=== PATIENT | female | born 1945 | race Caucasian/White ===

== ENCOUNTER 2017-05-16 00:09 | Day surgery (SDC) | payer OTHER, SELFPAY ==
[~2017-05-16 00:09] MED LIST: ENOX80I SC; HYDCHL12.5 PO; OXYACE5T PO; TRAM50 PO; WARF10 PO; WARF7.5 PO
[2017-10-24] MEDS ORDERED: LISI5 PO (07:44)
== END 2017-05-16 22:44 | disposition home or self-care (01) ==
LOC: WOUND 00:09
PROC: 2W1RX6Z Compression of Left Lower Leg using Pressure Dressing (ICD-10-PCS; principal; 2017-05-16)
DX: Z48.00 Encounter for change or removal of nonsurgical wound dressing (principal); I87.2 Venous insufficiency (chronic) (peripheral); D68.51 Activated protein C resistance; I70.209 Unspecified atherosclerosis of native arteries of extremities, unspecified extremity; I83.90 Asymptomatic varicose veins of unspecified lower extremity; M79.669 Pain in unspecified lower leg; Z79.01 Long term (current) use of anticoagulants
CPT/HCPCS: G0463

== ENCOUNTER 2017-05-18 00:40 | Day surgery (SDC) | payer OTHER, SELFPAY ==
[2017-10-24] MEDS ORDERED: LISI5 PO (07:44)
== END 2017-05-18 23:26 | disposition home or self-care (01) ==
LOC: WOUND 00:40
PROC: 2W1RX6Z Compression of Left Lower Leg using Pressure Dressing (ICD-10-PCS; principal; 2017-05-18)
DX: Z48.00 Encounter for change or removal of nonsurgical wound dressing (principal); I87.2 Venous insufficiency (chronic) (peripheral); D68.51 Activated protein C resistance; I70.209 Unspecified atherosclerosis of native arteries of extremities, unspecified extremity; I83.90 Asymptomatic varicose veins of unspecified lower extremity; M79.669 Pain in unspecified lower leg; Z79.01 Long term (current) use of anticoagulants; Z87.891 Personal history of nicotine dependence

== ENCOUNTER 2017-05-24 01:02 | Day surgery (SDC) | payer OTHER, SELFPAY ==
[2017-10-24] MEDS ORDERED: LISI5 PO (07:44)
== END 2017-05-24 22:54 | disposition home or self-care (01) ==
LOC: WOUND 01:02
PROC: 2W1RX6Z Compression of Left Lower Leg using Pressure Dressing (ICD-10-PCS; principal; 2017-05-24)
DX: I87.2 Venous insufficiency (chronic) (peripheral) (principal); L97.829 Non-pressure chronic ulcer of other part of left lower leg with unspecified severity; D68.51 Activated protein C resistance; I70.209 Unspecified atherosclerosis of native arteries of extremities, unspecified extremity; I83.90 Asymptomatic varicose veins of unspecified lower extremity; M79.669 Pain in unspecified lower leg; Z79.01 Long term (current) use of anticoagulants; Z87.891 Personal history of nicotine dependence
CPT/HCPCS: G0463

== ENCOUNTER 2017-05-31 08:00 | Day surgery (SDC) | payer OTHER, SELFPAY ==
[2017-10-24] MEDS ORDERED: LISI5 PO (07:44)
== END 2017-05-31 22:37 | disposition home or self-care (01) ==
LOC: WOUND 08:00
PROC: 0HBLXZZ Excision of Left Lower Leg Skin, External Approach (ICD-10-PCS; principal; 2017-05-31)
DX: I87.2 Venous insufficiency (chronic) (peripheral) (principal); L97.329 Non-pressure chronic ulcer of left ankle with unspecified severity; D68.51 Activated protein C resistance; I70.209 Unspecified atherosclerosis of native arteries of extremities, unspecified extremity; I83.90 Asymptomatic varicose veins of unspecified lower extremity; M79.669 Pain in unspecified lower leg; Z79.01 Long term (current) use of anticoagulants; Z87.891 Personal history of nicotine dependence
CPT/HCPCS: G0463

== ENCOUNTER 2017-06-06 09:30 | Day surgery (SDC) | payer OTHER, SELFPAY ==
[2017-10-24] MEDS ORDERED: LISI5 PO (07:44)
== END 2017-06-06 16:29 | disposition home or self-care (01) ==
LOC: WOUND 09:30
PROC: 2W1RX6Z Compression of Left Lower Leg using Pressure Dressing (ICD-10-PCS; principal; 2017-06-06)
DX: L97.329 Non-pressure chronic ulcer of left ankle with unspecified severity (principal); I87.2 Venous insufficiency (chronic) (peripheral); D68.51 Activated protein C resistance; I70.209 Unspecified atherosclerosis of native arteries of extremities, unspecified extremity; I83.90 Asymptomatic varicose veins of unspecified lower extremity; M79.669 Pain in unspecified lower leg; Z79.01 Long term (current) use of anticoagulants; Z87.891 Personal history of nicotine dependence

== ENCOUNTER 2017-06-14 00:51 | Day surgery (SDC) | payer OTHER, SELFPAY ==
[2017-10-24] MEDS ORDERED: LISI5 PO (07:44)
== END 2017-06-14 11:26 | disposition home or self-care (01) ==
LOC: WOUND 00:51
PROC: 2W1RX6Z Compression of Left Lower Leg using Pressure Dressing (ICD-10-PCS; principal; 2017-06-14)
DX: Z48.00 Encounter for change or removal of nonsurgical wound dressing (principal); I70.209 Unspecified atherosclerosis of native arteries of extremities, unspecified extremity; I87.332 Chronic venous hypertension (idiopathic) with ulcer and inflammation of left lower extremity; L97.329 Non-pressure chronic ulcer of left ankle with unspecified severity; D68.51 Activated protein C resistance; I35.0 Nonrheumatic aortic (valve) stenosis; Z79.01 Long term (current) use of anticoagulants

== ENCOUNTER 2017-06-21 00:45 | Day surgery (SDC) | payer OTHER | END 2017-06-21 22:53 | disposition home or self-care (01) | LOC: WOUND 00:45 | PROC: 0HBLXZZ Excision of Left Lower Leg Skin, External Approach (ICD-10-PCS; principal; 2017-06-21) | DX: I87.2 Venous insufficiency (chronic) (peripheral) (principal); L97.822 Non-pressure chronic ulcer of other part of left lower leg with fat layer exposed; D68.51 Activated protein C resistance; I83.90 Asymptomatic varicose veins of unspecified lower extremity; M79.669 Pain in unspecified lower leg; I70.209 Unspecified atherosclerosis of native arteries of extremities, unspecified extremity; Z79.01 Long term (current) use of anticoagulants | CPT/HCPCS: G0463 ==

== ENCOUNTER 2017-06-28 01:10 | Day surgery (SDC) | payer OTHER | END 2017-06-28 09:20 | disposition home or self-care (01) | LOC: WOUND 01:10 | PROC: 2W1RX6Z Compression of Left Lower Leg using Pressure Dressing (ICD-10-PCS; principal; 2017-06-28) | PROC: 0HBLXZZ Excision of Left Lower Leg Skin, External Approach (ICD-10-PCS; principal; 2017-06-28) | DX: I87.2 Venous insufficiency (chronic) (peripheral) (principal); L97.329 Non-pressure chronic ulcer of left ankle with unspecified severity; D68.51 Activated protein C resistance; I70.209 Unspecified atherosclerosis of native arteries of extremities, unspecified extremity; I83.90 Asymptomatic varicose veins of unspecified lower extremity; M79.669 Pain in unspecified lower leg; Z79.01 Long term (current) use of anticoagulants | CPT/HCPCS: G0463 ==

== ENCOUNTER 2017-07-05 08:00 | Day surgery (SDC) | payer OTHER | END 2017-07-05 22:43 | disposition home or self-care (01) | LOC: WOUND 08:00 | PROC: 2W1RX6Z Compression of Left Lower Leg using Pressure Dressing (ICD-10-PCS; principal; 2017-07-05) | DX: I87.2 Venous insufficiency (chronic) (peripheral) (principal); L97.329 Non-pressure chronic ulcer of left ankle with unspecified severity; D68.51 Activated protein C resistance; I70.209 Unspecified atherosclerosis of native arteries of extremities, unspecified extremity; I83.90 Asymptomatic varicose veins of unspecified lower extremity; M79.669 Pain in unspecified lower leg; Z79.01 Long term (current) use of anticoagulants; Z87.891 Personal history of nicotine dependence ==

== ENCOUNTER 2017-07-12 00:05 | Day surgery (SDC) | payer OTHER | END 2017-07-12 22:39 | disposition home or self-care (01) | LOC: WOUND 00:05 | PROC: 0HBLXZZ Excision of Left Lower Leg Skin, External Approach (ICD-10-PCS; principal; 2017-07-12) | PROC: 2W1RX6Z Compression of Left Lower Leg using Pressure Dressing (ICD-10-PCS; principal; 2017-07-12) | DX: I87.2 Venous insufficiency (chronic) (peripheral) (principal); L97.329 Non-pressure chronic ulcer of left ankle with unspecified severity; D68.51 Activated protein C resistance; I70.209 Unspecified atherosclerosis of native arteries of extremities, unspecified extremity; I83.90 Asymptomatic varicose veins of unspecified lower extremity; M79.669 Pain in unspecified lower leg; Z79.01 Long term (current) use of anticoagulants; Z87.891 Personal history of nicotine dependence | CPT/HCPCS: G0463 ==

== ENCOUNTER 2017-07-19 00:11 | Day surgery (SDC) | payer OTHER | END 2017-07-19 15:41 | disposition home or self-care (01) | LOC: WOUND 00:11 | PROC: 2W1RX6Z Compression of Left Lower Leg using Pressure Dressing (ICD-10-PCS; principal; 2017-07-19) | DX: I87.2 Venous insufficiency (chronic) (peripheral) (principal); L97.822 Non-pressure chronic ulcer of other part of left lower leg with fat layer exposed; D68.51 Activated protein C resistance; I70.209 Unspecified atherosclerosis of native arteries of extremities, unspecified extremity; I83.90 Asymptomatic varicose veins of unspecified lower extremity; M79.669 Pain in unspecified lower leg; Z79.01 Long term (current) use of anticoagulants; Z87.891 Personal history of nicotine dependence | CPT/HCPCS: G0463 ==

== ENCOUNTER 2017-07-26 00:02 | Day surgery (SDC) | payer OTHER | END 2017-07-26 11:37 | disposition home or self-care (01) | LOC: WOUND 00:02 | PROC: 0HBLXZZ Excision of Left Lower Leg Skin, External Approach (ICD-10-PCS; principal; 2017-07-26) | DX: I87.2 Venous insufficiency (chronic) (peripheral) (principal); D68.51 Activated protein C resistance; I70.209 Unspecified atherosclerosis of native arteries of extremities, unspecified extremity; M79.669 Pain in unspecified lower leg; Z79.01 Long term (current) use of anticoagulants; L97.822 Non-pressure chronic ulcer of other part of left lower leg with fat layer exposed | CPT/HCPCS: 87070; 87077; 87186; 87205; G0463 ==

== ENCOUNTER 2017-08-02 00:07 | Day surgery (SDC) | payer OTHER | END 2017-08-02 08:56 | disposition home or self-care (01) | LOC: WOUND 00:07 | DX: Z48.00 Encounter for change or removal of nonsurgical wound dressing (principal); I87.2 Venous insufficiency (chronic) (peripheral); D68.51 Activated protein C resistance; I70.209 Unspecified atherosclerosis of native arteries of extremities, unspecified extremity; I83.90 Asymptomatic varicose veins of unspecified lower extremity; M79.669 Pain in unspecified lower leg; Z79.01 Long term (current) use of anticoagulants; Z87.891 Personal history of nicotine dependence | CPT/HCPCS: G0463 ==

== ENCOUNTER 2017-08-09 08:00 | Day surgery (SDC) | payer OTHER | END 2017-08-09 13:56 | disposition home or self-care (01) | LOC: WOUND 08:00 | PROC: 0HBLXZZ Excision of Left Lower Leg Skin, External Approach (ICD-10-PCS; principal; 2017-08-09) | DX: L97.822 Non-pressure chronic ulcer of other part of left lower leg with fat layer exposed (principal); D68.51 Activated protein C resistance; I87.2 Venous insufficiency (chronic) (peripheral); I83.90 Asymptomatic varicose veins of unspecified lower extremity; M79.669 Pain in unspecified lower leg | CPT/HCPCS: G0463 ==

== ENCOUNTER 2017-08-16 00:21 | Day surgery (SDC) | payer OTHER | END 2017-08-16 09:50 | disposition home or self-care (01) | LOC: WOUND 00:21 | PROC: 0HBLXZZ Excision of Left Lower Leg Skin, External Approach (ICD-10-PCS; principal; 2017-08-16) | DX: L97.822 Non-pressure chronic ulcer of other part of left lower leg with fat layer exposed (principal); D68.51 Activated protein C resistance; I87.2 Venous insufficiency (chronic) (peripheral); I83.90 Asymptomatic varicose veins of unspecified lower extremity | CPT/HCPCS: G0463 ==

== ENCOUNTER 2017-08-23 08:00 | Day surgery (SDC) | payer OTHER | END 2017-08-23 23:00 | disposition home or self-care (01) | LOC: WOUND 08:00 | DX: Z48.00 Encounter for change or removal of nonsurgical wound dressing (principal); D68.51 Activated protein C resistance; I87.2 Venous insufficiency (chronic) (peripheral); I70.209 Unspecified atherosclerosis of native arteries of extremities, unspecified extremity; I83.90 Asymptomatic varicose veins of unspecified lower extremity; M79.669 Pain in unspecified lower leg; Z79.01 Long term (current) use of anticoagulants; L97.829 Non-pressure chronic ulcer of other part of left lower leg with unspecified severity | CPT/HCPCS: G0463 ==

== ENCOUNTER 2017-08-29 07:48 | Day surgery (SDC) | payer OTHER | END 2017-08-29 22:53 | disposition home or self-care (01) | LOC: WOUND 07:48 | DX: Z48.00 Encounter for change or removal of nonsurgical wound dressing (principal); I87.2 Venous insufficiency (chronic) (peripheral); L97.822 Non-pressure chronic ulcer of other part of left lower leg with fat layer exposed; D68.51 Activated protein C resistance; I83.90 Asymptomatic varicose veins of unspecified lower extremity; M79.669 Pain in unspecified lower leg | CPT/HCPCS: G0463 ==

== ENCOUNTER 2017-09-06 08:00 | Day surgery (SDC) | payer OTHER | END 2017-09-06 09:48 | disposition home or self-care (01) | LOC: WOUND 08:00 | DX: Z48.00 Encounter for change or removal of nonsurgical wound dressing (principal); L97.822 Non-pressure chronic ulcer of other part of left lower leg with fat layer exposed; D68.51 Activated protein C resistance; I87.2 Venous insufficiency (chronic) (peripheral); I83.90 Asymptomatic varicose veins of unspecified lower extremity | CPT/HCPCS: G0463 ==

== ENCOUNTER 2017-09-14 12:15 | Day surgery (SDC) | payer OTHER | END 2017-09-14 12:58 | disposition home or self-care (01) | LOC: WOUND 12:15 | PROC: 0HBLXZZ Excision of Left Lower Leg Skin, External Approach (ICD-10-PCS; principal; 2017-09-14) | DX: L97.322 Non-pressure chronic ulcer of left ankle with fat layer exposed (principal); D68.51 Activated protein C resistance; I70.209 Unspecified atherosclerosis of native arteries of extremities, unspecified extremity; I83.90 Asymptomatic varicose veins of unspecified lower extremity; M79.669 Pain in unspecified lower leg ==

== ENCOUNTER 2017-09-21 08:00 | Day surgery (SDC) | payer OTHER | END 2017-09-21 10:01 | disposition home or self-care (01) | LOC: WOUND 08:00 | DX: Z48.00 Encounter for change or removal of nonsurgical wound dressing (principal); L97.329 Non-pressure chronic ulcer of left ankle with unspecified severity; D68.51 Activated protein C resistance; I87.2 Venous insufficiency (chronic) (peripheral); I83.90 Asymptomatic varicose veins of unspecified lower extremity; Z79.01 Long term (current) use of anticoagulants | CPT/HCPCS: G0463 ==

== ENCOUNTER 2017-09-24 12:30 | Day surgery (SDC) | payer OTHER | END 2017-09-24 16:01 | disposition home or self-care (01) | LOC: WOUND 12:30 | DX: Z48.00 Encounter for change or removal of nonsurgical wound dressing (principal); L97.922 Non-pressure chronic ulcer of unspecified part of left lower leg with fat layer exposed; I87.2 Venous insufficiency (chronic) (peripheral); I70.209 Unspecified atherosclerosis of native arteries of extremities, unspecified extremity; I83.90 Asymptomatic varicose veins of unspecified lower extremity; M79.669 Pain in unspecified lower leg; D68.51 Activated protein C resistance; Z86.718 Personal history of other venous thrombosis and embolism; Z79.01 Long term (current) use of anticoagulants | CPT/HCPCS: G0463 ==

== ENCOUNTER 2017-10-05 09:30 | Day surgery (SDC) | payer OTHER | END 2017-10-05 10:28 | disposition home or self-care (01) | LOC: WOUND 09:30 | DX: I70.248 Atherosclerosis of native arteries of left leg with ulceration of other part of lower leg (principal); L97.322 Non-pressure chronic ulcer of left ankle with fat layer exposed; I87.2 Venous insufficiency (chronic) (peripheral); D68.51 Activated protein C resistance; Z86.718 Personal history of other venous thrombosis and embolism; R60.0 Localized edema; Z79.01 Long term (current) use of anticoagulants; Z87.891 Personal history of nicotine dependence | CPT/HCPCS: G0463 ==

== ENCOUNTER 2017-10-09 08:00 | Day surgery (SDC) | payer OTHER | END 2017-10-09 10:02 | disposition home or self-care (01) | LOC: WOUND 08:00 | DX: Z48.00 Encounter for change or removal of nonsurgical wound dressing (principal); L97.922 Non-pressure chronic ulcer of unspecified part of left lower leg with fat layer exposed; I87.2 Venous insufficiency (chronic) (peripheral); I70.209 Unspecified atherosclerosis of native arteries of extremities, unspecified extremity; I83.90 Asymptomatic varicose veins of unspecified lower extremity; M79.669 Pain in unspecified lower leg; D68.51 Activated protein C resistance | CPT/HCPCS: G0463 ==

== ENCOUNTER 2017-11-02 00:13 | Day surgery (SDC) | payer OTHER, SELFPAY ==
[~2017-11-02 00:13] MED LIST changes: +LISI5 PO
== END 2017-11-02 07:52 | disposition home or self-care (01) ==
LOC: ATC 00:13
DX: L97.922 Non-pressure chronic ulcer of unspecified part of left lower leg with fat layer exposed (principal); I87.2 Venous insufficiency (chronic) (peripheral); I70.209 Unspecified atherosclerosis of native arteries of extremities, unspecified extremity; I83.90 Asymptomatic varicose veins of unspecified lower extremity; M79.669 Pain in unspecified lower leg; D68.51 Activated protein C resistance
CPT/HCPCS: 99211

== ENCOUNTER 2017-11-13 00:08 | Day surgery (SDC) | payer OTHER, SELFPAY | END 2017-11-13 15:00 | disposition home or self-care (01) | LOC: ATC 00:08 | DX: L97.909 Non-pressure chronic ulcer of unspecified part of unspecified lower leg with unspecified severity (principal) | CPT/HCPCS: 99212 ==

== ENCOUNTER 2017-11-22 00:10 | Day surgery (SDC) | payer OTHER, SELFPAY | END 2017-11-22 22:46 | disposition home or self-care (01) | LOC: ATC 00:10 | DX: L97.909 Non-pressure chronic ulcer of unspecified part of unspecified lower leg with unspecified severity (principal) | CPT/HCPCS: 99212 ==

== ENCOUNTER 2017-12-21 07:30 | Day surgery (SDC) | payer OTHER | END 2017-12-21 22:40 | disposition home or self-care (01) | LOC: WOUND 07:30 | DX: L97.321 Non-pressure chronic ulcer of left ankle limited to breakdown of skin (principal); I70.209 Unspecified atherosclerosis of native arteries of extremities, unspecified extremity; I83.90 Asymptomatic varicose veins of unspecified lower extremity; D68.51 Activated protein C resistance; Z79.02 Long term (current) use of antithrombotics/antiplatelets; I10 Essential (primary) hypertension; Z86.718 Personal history of other venous thrombosis and embolism; Z79.01 Long term (current) use of anticoagulants | CPT/HCPCS: G0463 ==

== ENCOUNTER → 2019-01-24 | Outpatient (CLI) | payer OTHER | END | disposition home or self-care (01) | LOC: LAB EV 15:12 → LAB SHORT 15:12 | DX: N39.0 Urinary tract infection, site not specified (principal) | CPT/HCPCS: 87086 ==

== ENCOUNTER 2019-03-14 05:40 | Day surgery (SDC) | payer OTHER ==
[~2019-03-14] VITALS: Ht 162.6 cm; Wt 74.0 kg
[~2019-03-14 05:40] MED LIST changes: +ACET325 PO; +Oyster Shell C500 MG PO
[2019-03-14] MEDS ORDERED: METO25ER PO (08:38)
--- NOTE | 2019-03-14 08:52 | NUR ---
PT TOLERATES CARDIOVERSION WELL. VSS. NADN. NSR ON MONITOR. PT AND FAMILY VERBALIZES UNDERSTANDING WRITTEN AND VERBAL ORDERS. PT IV DC'D. CATH INTACT. PRESSURE DSG IN PLACE. PT DRESSES SELF WITHOUT DIFF. PT DC TO HOME VIA WC BY FAMILY
== END 2019-03-14 09:00 | disposition home or self-care (01) ==
LOC: MHTC 05:40
DX: I48.0 Paroxysmal atrial fibrillation (principal); D68.59 Other primary thrombophilia; I10 Essential (primary) hypertension; I08.0 Rheumatic disorders of both mitral and aortic valves; D68.51 Activated protein C resistance; Z86.718 Personal history of other venous thrombosis and embolism; Z79.01 Long term (current) use of anticoagulants; Z96.643 Presence of artificial hip joint, bilateral; Z79.899 Other long term (current) drug therapy; Z87.81 Personal history of (healed) traumatic fracture
CPT/HCPCS: 92960; 93005; 93010; 99152; J2250; J2704; J3010; J7040

== ENCOUNTER 2021-04-11 02:53 | Day surgery (SDC) | payer OTHER ==
[~2021-04-11 02:53] MED LIST changes: +METO25ER PO
== END 2021-04-11 22:40 | disposition home or self-care (01) ==
LOC: WOUND 02:53
DX: I87.312 Chronic venous hypertension (idiopathic) with ulcer of left lower extremity (principal); L97.822 Non-pressure chronic ulcer of other part of left lower leg with fat layer exposed; I87.2 Venous insufficiency (chronic) (peripheral); I73.9 Peripheral vascular disease, unspecified
CPT/HCPCS: A9270; G0463

== ENCOUNTER 2021-04-18 03:18 | Day surgery (SDC) | payer OTHER | END 2021-04-18 23:29 | disposition home or self-care (01) | LOC: WOUND 03:18 | DX: L97.822 Non-pressure chronic ulcer of other part of left lower leg with fat layer exposed (principal); I87.312 Chronic venous hypertension (idiopathic) with ulcer of left lower extremity; I87.2 Venous insufficiency (chronic) (peripheral); I73.9 Peripheral vascular disease, unspecified | CPT/HCPCS: A9270; G0463 ==

== ENCOUNTER 2021-04-25 02:54 | Day surgery (SDC) | payer OTHER | END 2021-04-25 23:33 | disposition home or self-care (01) | LOC: WOUND 02:54 | DX: I87.312 Chronic venous hypertension (idiopathic) with ulcer of left lower extremity (principal); L97.822 Non-pressure chronic ulcer of other part of left lower leg with fat layer exposed; I87.2 Venous insufficiency (chronic) (peripheral); I73.9 Peripheral vascular disease, unspecified; Z86.718 Personal history of other venous thrombosis and embolism; Z79.01 Long term (current) use of anticoagulants; I48.91 Unspecified atrial fibrillation; D68.59 Other primary thrombophilia | CPT/HCPCS: A9270; G0463 ==

== ENCOUNTER 2021-05-02 03:01 | Day surgery (SDC) | payer OTHER | END 2021-05-02 23:26 | disposition home or self-care (01) | LOC: WOUND 03:01 | DX: I87.312 Chronic venous hypertension (idiopathic) with ulcer of left lower extremity (principal); L97.825 Non-pressure chronic ulcer of other part of left lower leg with muscle involvement without evidence of necrosis; I87.2 Venous insufficiency (chronic) (peripheral); I73.9 Peripheral vascular disease, unspecified; I10 Essential (primary) hypertension; I48.91 Unspecified atrial fibrillation; Z79.01 Long term (current) use of anticoagulants | CPT/HCPCS: A9270; G0463 ==

== ENCOUNTER 2021-05-09 01:57 | Day surgery (SDC) | payer OTHER | END 2021-05-09 23:15 | disposition home or self-care (01) | LOC: WOUND 01:57 | DX: I87.312 Chronic venous hypertension (idiopathic) with ulcer of left lower extremity (principal); L97.825 Non-pressure chronic ulcer of other part of left lower leg with muscle involvement without evidence of necrosis; I87.2 Venous insufficiency (chronic) (peripheral); I73.9 Peripheral vascular disease, unspecified; Z86.718 Personal history of other venous thrombosis and embolism; Z79.01 Long term (current) use of anticoagulants; I10 Essential (primary) hypertension; I48.91 Unspecified atrial fibrillation | CPT/HCPCS: A9270 ==

== ENCOUNTER 2021-05-16 01:31 | Day surgery (SDC) | payer OTHER | END 2021-05-16 23:29 | disposition home or self-care (01) | LOC: WOUND 01:31 | DX: L97.825 Non-pressure chronic ulcer of other part of left lower leg with muscle involvement without evidence of necrosis (principal); I87.312 Chronic venous hypertension (idiopathic) with ulcer of left lower extremity; I87.2 Venous insufficiency (chronic) (peripheral); I73.9 Peripheral vascular disease, unspecified | CPT/HCPCS: A9270 ==

== ENCOUNTER 2021-05-23 02:57 | Day surgery (SDC) | payer OTHER | END 2021-05-23 23:35 | disposition home or self-care (01) | LOC: WOUND | DX: I87.312 Chronic venous hypertension (idiopathic) with ulcer of left lower extremity (principal); L97.825 Non-pressure chronic ulcer of other part of left lower leg with muscle involvement without evidence of necrosis; I87.2 Venous insufficiency (chronic) (peripheral); I73.9 Peripheral vascular disease, unspecified; Z86.718 Personal history of other venous thrombosis and embolism; Z79.01 Long term (current) use of anticoagulants | CPT/HCPCS: A9270 ==

== ENCOUNTER 2021-05-30 05:48 | Day surgery (SDC) | payer OTHER | END 2021-05-30 23:28 | disposition home or self-care (01) | LOC: WOUND 05:48 | DX: I87.312 Chronic venous hypertension (idiopathic) with ulcer of left lower extremity (principal); L97.825 Non-pressure chronic ulcer of other part of left lower leg with muscle involvement without evidence of necrosis; I87.2 Venous insufficiency (chronic) (peripheral); I73.9 Peripheral vascular disease, unspecified; Z86.718 Personal history of other venous thrombosis and embolism; Z79.01 Long term (current) use of anticoagulants | CPT/HCPCS: A9270 ==

== ENCOUNTER 2021-06-06 02:18 | Day surgery (SDC) | payer OTHER ==
[~2021-06-06 02:18] MED LIST changes: +CEPH500 PO
== END 2021-06-06 22:43 | disposition home or self-care (01) ==
LOC: WOUND 02:18
DX: I87.312 Chronic venous hypertension (idiopathic) with ulcer of left lower extremity (principal); L97.825 Non-pressure chronic ulcer of other part of left lower leg with muscle involvement without evidence of necrosis; I87.2 Venous insufficiency (chronic) (peripheral); I73.9 Peripheral vascular disease, unspecified
CPT/HCPCS: A9270; G0463

== ENCOUNTER 2021-06-13 01:15 | Day surgery (SDC) | payer OTHER | END 2021-06-13 23:38 | disposition home or self-care (01) | LOC: WOUND 01:15 | DX: I87.312 Chronic venous hypertension (idiopathic) with ulcer of left lower extremity (principal); L97.825 Non-pressure chronic ulcer of other part of left lower leg with muscle involvement without evidence of necrosis; I87.2 Venous insufficiency (chronic) (peripheral); I73.9 Peripheral vascular disease, unspecified; I10 Essential (primary) hypertension | CPT/HCPCS: A9270 ==

== ENCOUNTER 2021-06-20 02:01 | Day surgery (SDC) | payer OTHER | END 2021-06-20 23:27 | disposition home or self-care (01) | LOC: WOUND 02:01 | DX: I87.312 Chronic venous hypertension (idiopathic) with ulcer of left lower extremity (principal); L97.825 Non-pressure chronic ulcer of other part of left lower leg with muscle involvement without evidence of necrosis; L97.822 Non-pressure chronic ulcer of other part of left lower leg with fat layer exposed; I87.2 Venous insufficiency (chronic) (peripheral); I73.9 Peripheral vascular disease, unspecified; I10 Essential (primary) hypertension; I48.91 Unspecified atrial fibrillation; Z79.01 Long term (current) use of anticoagulants | CPT/HCPCS: A9270 ==

== ENCOUNTER 2021-06-27 00:57 | Day surgery (SDC) | payer OTHER | END 2021-06-27 23:47 | disposition home or self-care (01) | LOC: WOUND 00:57 | DX: I87.312 Chronic venous hypertension (idiopathic) with ulcer of left lower extremity (principal); L97.825 Non-pressure chronic ulcer of other part of left lower leg with muscle involvement without evidence of necrosis; L97.822 Non-pressure chronic ulcer of other part of left lower leg with fat layer exposed; I87.2 Venous insufficiency (chronic) (peripheral); I73.9 Peripheral vascular disease, unspecified; Z86.718 Personal history of other venous thrombosis and embolism | CPT/HCPCS: A9270 ==

== ENCOUNTER 2021-07-04 02:49 | Day surgery (SDC) | payer OTHER ==
[2021-09-13] MEDS ORDERED: CARVEDILOL3.125 MG PO (08:51)
[2021-09-13] MEDS ORDERED: Pentoxifylline400 MG PO (08:52)
[2021-09-13] MEDS ORDERED: ALBU90OI INH (08:52)
[2021-09-13] MEDS ORDERED: EDARBI40 MG PO (08:53)
[2021-09-13] MEDS ORDERED: GABA300 PO (08:53)
[2021-09-13] MEDS ORDERED: Norco 10-325 T1 EACH PO (08:54)
== END 2021-07-04 23:02 | disposition home or self-care (01) ==
LOC: WOUND 02:49
DX: I87.312 Chronic venous hypertension (idiopathic) with ulcer of left lower extremity (principal); L97.825 Non-pressure chronic ulcer of other part of left lower leg with muscle involvement without evidence of necrosis; S81.812A Laceration without foreign body, left lower leg, initial encounter; I87.2 Venous insufficiency (chronic) (peripheral); I73.9 Peripheral vascular disease, unspecified
CPT/HCPCS: A9270

== ENCOUNTER 2021-07-11 01:45 | Day surgery (SDC) | payer OTHER | END 2021-07-11 22:49 | disposition home or self-care (01) | LOC: WOUND 01:45 | DX: I87.312 Chronic venous hypertension (idiopathic) with ulcer of left lower extremity (principal); L97.825 Non-pressure chronic ulcer of other part of left lower leg with muscle involvement without evidence of necrosis; I87.2 Venous insufficiency (chronic) (peripheral); I73.9 Peripheral vascular disease, unspecified; I10 Essential (primary) hypertension; I48.91 Unspecified atrial fibrillation | CPT/HCPCS: A9270 ==

== ENCOUNTER 2021-07-18 01:08 | Day surgery (SDC) | payer OTHER | END 2021-07-18 23:07 | disposition home or self-care (01) | LOC: WOUND 01:08 | DX: I87.312 Chronic venous hypertension (idiopathic) with ulcer of left lower extremity (principal); L97.822 Non-pressure chronic ulcer of other part of left lower leg with fat layer exposed; I10 Essential (primary) hypertension; I48.91 Unspecified atrial fibrillation; Z79.01 Long term (current) use of anticoagulants; Z86.718 Personal history of other venous thrombosis and embolism | CPT/HCPCS: A9270; G0463 ==

== ENCOUNTER 2021-07-25 01:20 | Day surgery (SDC) | payer OTHER | END 2021-07-25 22:54 | disposition home or self-care (01) | LOC: WOUND 01:20 | DX: I87.312 Chronic venous hypertension (idiopathic) with ulcer of left lower extremity (principal); L97.822 Non-pressure chronic ulcer of other part of left lower leg with fat layer exposed; I87.2 Venous insufficiency (chronic) (peripheral); I10 Essential (primary) hypertension; I48.91 Unspecified atrial fibrillation | CPT/HCPCS: A9270 ==

== ENCOUNTER 2021-08-01 00:58 | Day surgery (SDC) | payer OTHER | END 2021-08-01 23:25 | disposition home or self-care (01) | LOC: WOUND 00:58 | DX: I87.312 Chronic venous hypertension (idiopathic) with ulcer of left lower extremity (principal); L97.322 Non-pressure chronic ulcer of left ankle with fat layer exposed; I87.2 Venous insufficiency (chronic) (peripheral); Z86.718 Personal history of other venous thrombosis and embolism; Z79.01 Long term (current) use of anticoagulants; I10 Essential (primary) hypertension; I48.91 Unspecified atrial fibrillation | CPT/HCPCS: A9270; G0463 ==

== ENCOUNTER 2021-08-08 01:11 | Day surgery (SDC) | payer OTHER | END 2021-08-08 22:45 | disposition home or self-care (01) | LOC: WOUND 01:11 | DX: I87.312 Chronic venous hypertension (idiopathic) with ulcer of left lower extremity (principal); L97.825 Non-pressure chronic ulcer of other part of left lower leg with muscle involvement without evidence of necrosis; L97.822 Non-pressure chronic ulcer of other part of left lower leg with fat layer exposed; I87.2 Venous insufficiency (chronic) (peripheral); I73.9 Peripheral vascular disease, unspecified | CPT/HCPCS: A9270; Q4133 ==

== ENCOUNTER 2021-08-15 03:10 | Day surgery (SDC) | payer OTHER | END 2021-08-15 23:22 | disposition home or self-care (01) | LOC: WOUND | DX: I87.312 Chronic venous hypertension (idiopathic) with ulcer of left lower extremity (principal); L97.822 Non-pressure chronic ulcer of other part of left lower leg with fat layer exposed; I87.2 Venous insufficiency (chronic) (peripheral); I73.9 Peripheral vascular disease, unspecified; Z86.718 Personal history of other venous thrombosis and embolism; Z79.01 Long term (current) use of anticoagulants | CPT/HCPCS: A9270; Q4133 ==

== ENCOUNTER 2021-08-29 01:08 | Day surgery (SDC) | payer OTHER | END 2021-08-29 23:24 | disposition home or self-care (01) | LOC: WOUND 01:08 | DX: I87.312 Chronic venous hypertension (idiopathic) with ulcer of left lower extremity (principal); L97.822 Non-pressure chronic ulcer of other part of left lower leg with fat layer exposed; I87.2 Venous insufficiency (chronic) (peripheral); I73.9 Peripheral vascular disease, unspecified | CPT/HCPCS: A9270; Q4133 ==

== ENCOUNTER 2021-09-05 00:36 | Day surgery (SDC) | payer OTHER | END 2021-09-05 23:43 | disposition home or self-care (01) | LOC: WOUND 00:36 | DX: I87.312 Chronic venous hypertension (idiopathic) with ulcer of left lower extremity (principal); I87.2 Venous insufficiency (chronic) (peripheral); L97.322 Non-pressure chronic ulcer of left ankle with fat layer exposed; L97.822 Non-pressure chronic ulcer of other part of left lower leg with fat layer exposed; Z79.01 Long term (current) use of anticoagulants; Z86.718 Personal history of other venous thrombosis and embolism | CPT/HCPCS: A9270; Q4133 ==

== ENCOUNTER 2021-09-12 08:00 | Day surgery (SDC) | payer OTHER ==
[2021-09-13] MEDS ORDERED: CARVEDILOL3.125 MG PO (08:51)
[2021-09-13] MEDS ORDERED: Pentoxifylline400 MG PO (08:52)
[2021-09-13] MEDS ORDERED: ALBU90OI INH (08:52)
[2021-09-13] MEDS ORDERED: EDARBI40 MG PO (08:53)
[2021-09-13] MEDS ORDERED: GABA300 PO (08:53)
[2021-09-13] MEDS ORDERED: Norco 10-325 T1 EACH PO (08:54)
== END 2021-09-12 23:59 | disposition home or self-care (01) ==
LOC: WOUND 08:00
DX: I87.312 Chronic venous hypertension (idiopathic) with ulcer of left lower extremity (principal); L97.825 Non-pressure chronic ulcer of other part of left lower leg with muscle involvement without evidence of necrosis; L97.822 Non-pressure chronic ulcer of other part of left lower leg with fat layer exposed; L97.829 Non-pressure chronic ulcer of other part of left lower leg with unspecified severity; I87.2 Venous insufficiency (chronic) (peripheral); I73.9 Peripheral vascular disease, unspecified
CPT/HCPCS: A9270; G0463

== ENCOUNTER 2021-09-19 02:32 | Day surgery (SDC) | payer OTHER ==
[~2021-09-19 02:32] MED LIST changes: +ALBU90OI INH; +CARVEDILOL3.125 MG PO; +EDARBI40 MG PO; +GABA300 PO; +Norco 10-325 T1 EACH PO; +Pentoxifylline400 MG PO
== END 2021-09-19 23:14 | disposition home or self-care (01) ==
LOC: WOUND 02:32
DX: I87.312 Chronic venous hypertension (idiopathic) with ulcer of left lower extremity (principal); L97.825 Non-pressure chronic ulcer of other part of left lower leg with muscle involvement without evidence of necrosis; I70.248 Atherosclerosis of native arteries of left leg with ulceration of other part of lower leg; I87.2 Venous insufficiency (chronic) (peripheral); Z86.718 Personal history of other venous thrombosis and embolism; Z79.01 Long term (current) use of anticoagulants
CPT/HCPCS: A9270; G0463

== ENCOUNTER 2021-10-03 00:30 | Day surgery (SDC) | payer OTHER | END 2021-10-03 23:20 | disposition home or self-care (01) | LOC: WOUND 00:30 | DX: I87.312 Chronic venous hypertension (idiopathic) with ulcer of left lower extremity (principal); I70.248 Atherosclerosis of native arteries of left leg with ulceration of other part of lower leg; L97.825 Non-pressure chronic ulcer of other part of left lower leg with muscle involvement without evidence of necrosis; I87.2 Venous insufficiency (chronic) (peripheral); I73.9 Peripheral vascular disease, unspecified; Z86.718 Personal history of other venous thrombosis and embolism; Z79.01 Long term (current) use of anticoagulants | CPT/HCPCS: A9270; Q4133 ==

== ENCOUNTER 2021-10-10 06:50 | Day surgery (SDC) | payer OTHER | END 2021-10-10 23:41 | disposition home or self-care (01) | LOC: WOUND 06:50 | DX: I87.312 Chronic venous hypertension (idiopathic) with ulcer of left lower extremity (principal); L97.822 Non-pressure chronic ulcer of other part of left lower leg with fat layer exposed; I70.248 Atherosclerosis of native arteries of left leg with ulceration of other part of lower leg; I87.2 Venous insufficiency (chronic) (peripheral); Z86.718 Personal history of other venous thrombosis and embolism; Z79.01 Long term (current) use of anticoagulants; I48.91 Unspecified atrial fibrillation; I10 Essential (primary) hypertension | CPT/HCPCS: A9270; Q4133 ==

== ENCOUNTER 2021-10-17 05:08 | Day surgery (SDC) | payer OTHER | END 2021-10-17 23:28 | disposition home or self-care (01) | LOC: WOUND 05:08 | DX: I87.312 Chronic venous hypertension (idiopathic) with ulcer of left lower extremity (principal); I70.248 Atherosclerosis of native arteries of left leg with ulceration of other part of lower leg; L97.825 Non-pressure chronic ulcer of other part of left lower leg with muscle involvement without evidence of necrosis; I87.2 Venous insufficiency (chronic) (peripheral); I73.9 Peripheral vascular disease, unspecified | CPT/HCPCS: A9270; G0463 ==

== ENCOUNTER 2021-10-24 01:58 | Day surgery (SDC) | payer OTHER | END 2021-10-24 23:14 | disposition home or self-care (01) | LOC: WOUND 01:58 | DX: I87.312 Chronic venous hypertension (idiopathic) with ulcer of left lower extremity (principal); I70.248 Atherosclerosis of native arteries of left leg with ulceration of other part of lower leg; L97.822 Non-pressure chronic ulcer of other part of left lower leg with fat layer exposed; I87.2 Venous insufficiency (chronic) (peripheral); Z86.718 Personal history of other venous thrombosis and embolism; Z79.01 Long term (current) use of anticoagulants; I10 Essential (primary) hypertension; I48.91 Unspecified atrial fibrillation | CPT/HCPCS: A9270; G0463 ==

== ENCOUNTER 2021-10-31 01:09 | Day surgery (SDC) | payer OTHER | END 2021-10-31 23:46 | disposition home or self-care (01) | LOC: WOUND 01:09 | DX: I87.312 Chronic venous hypertension (idiopathic) with ulcer of left lower extremity (principal); I70.248 Atherosclerosis of native arteries of left leg with ulceration of other part of lower leg; L97.822 Non-pressure chronic ulcer of other part of left lower leg with fat layer exposed; I87.2 Venous insufficiency (chronic) (peripheral); Z79.01 Long term (current) use of anticoagulants | CPT/HCPCS: A9270; G0463 ==

== ENCOUNTER 2021-11-07 03:41 | Day surgery (SDC) | payer OTHER | END 2021-11-07 23:00 | disposition home or self-care (01) | LOC: WOUND 03:41 | DX: I87.312 Chronic venous hypertension (idiopathic) with ulcer of left lower extremity (principal); L97.822 Non-pressure chronic ulcer of other part of left lower leg with fat layer exposed; I70.248 Atherosclerosis of native arteries of left leg with ulceration of other part of lower leg; I87.2 Venous insufficiency (chronic) (peripheral); Z86.718 Personal history of other venous thrombosis and embolism; Z79.01 Long term (current) use of anticoagulants | CPT/HCPCS: A9270 ==

== ENCOUNTER 2021-11-14 00:22 | Day surgery (SDC) | payer OTHER | END 2021-11-15 00:34 | disposition home or self-care (01) | LOC: WOUND 00:22 | DX: I70.248 Atherosclerosis of native arteries of left leg with ulceration of other part of lower leg (principal); L97.822 Non-pressure chronic ulcer of other part of left lower leg with fat layer exposed; I70.25 Atherosclerosis of native arteries of other extremities with ulceration; L98.492 Non-pressure chronic ulcer of skin of other sites with fat layer exposed; I87.312 Chronic venous hypertension (idiopathic) with ulcer of left lower extremity; I87.2 Venous insufficiency (chronic) (peripheral); Z86.718 Personal history of other venous thrombosis and embolism; Z79.01 Long term (current) use of anticoagulants | CPT/HCPCS: A9270; G0463 ==

== ENCOUNTER 2021-11-21 01:16 | Day surgery (SDC) | payer OTHER | END 2021-11-21 23:16 | disposition home or self-care (01) | LOC: WOUND 01:16 | DX: I87.312 Chronic venous hypertension (idiopathic) with ulcer of left lower extremity (principal); L97.822 Non-pressure chronic ulcer of other part of left lower leg with fat layer exposed; I87.2 Venous insufficiency (chronic) (peripheral); I70.248 Atherosclerosis of native arteries of left leg with ulceration of other part of lower leg; Z79.01 Long term (current) use of anticoagulants | CPT/HCPCS: A9270 ==

== ENCOUNTER 2021-12-12 00:26 | Day surgery (SDC) | payer OTHER | END 2021-12-12 23:31 | disposition home or self-care (01) | LOC: WOUND 00:26 | DX: I87.312 Chronic venous hypertension (idiopathic) with ulcer of left lower extremity (principal); I70.248 Atherosclerosis of native arteries of left leg with ulceration of other part of lower leg; L97.322 Non-pressure chronic ulcer of left ankle with fat layer exposed; L97.822 Non-pressure chronic ulcer of other part of left lower leg with fat layer exposed; I87.2 Venous insufficiency (chronic) (peripheral); I10 Essential (primary) hypertension; I48.91 Unspecified atrial fibrillation; Z86.718 Personal history of other venous thrombosis and embolism; Z79.01 Long term (current) use of anticoagulants | CPT/HCPCS: A9270; Q4133 ==

== ENCOUNTER 2021-12-12 09:07 | Day surgery (SDC) | payer OTHER | END 2021-12-12 23:31 | disposition home or self-care (01) | LOC: HBO 09:07 | DX: I70.248 Atherosclerosis of native arteries of left leg with ulceration of other part of lower leg (principal); I87.312 Chronic venous hypertension (idiopathic) with ulcer of left lower extremity; L97.822 Non-pressure chronic ulcer of other part of left lower leg with fat layer exposed; I87.2 Venous insufficiency (chronic) (peripheral) | CPT/HCPCS: G0277 ==

== ENCOUNTER 2021-12-22 02:03 | Day surgery (SDC) | payer OTHER | END 2021-12-22 23:26 | disposition home or self-care (01) | LOC: HBO 02:03 | DX: I70.248 Atherosclerosis of native arteries of left leg with ulceration of other part of lower leg (principal); L97.822 Non-pressure chronic ulcer of other part of left lower leg with fat layer exposed; I87.2 Venous insufficiency (chronic) (peripheral); I87.312 Chronic venous hypertension (idiopathic) with ulcer of left lower extremity | CPT/HCPCS: G0277 ==

== ENCOUNTER 2021-12-23 02:56 | Day surgery (SDC) | payer OTHER | END 2021-12-24 00:34 | disposition home or self-care (01) | LOC: HBO 02:56 | DX: I70.248 Atherosclerosis of native arteries of left leg with ulceration of other part of lower leg (principal); I87.312 Chronic venous hypertension (idiopathic) with ulcer of left lower extremity; L97.822 Non-pressure chronic ulcer of other part of left lower leg with fat layer exposed; I87.2 Venous insufficiency (chronic) (peripheral) | CPT/HCPCS: G0277 ==

== ENCOUNTER 2021-12-26 00:53 | Day surgery (SDC) | payer OTHER | END 2021-12-26 22:56 | disposition home or self-care (01) | LOC: WOUND 00:53 | DX: I70.248 Atherosclerosis of native arteries of left leg with ulceration of other part of lower leg (principal); I87.312 Chronic venous hypertension (idiopathic) with ulcer of left lower extremity; L97.822 Non-pressure chronic ulcer of other part of left lower leg with fat layer exposed; L97.322 Non-pressure chronic ulcer of left ankle with fat layer exposed; I87.2 Venous insufficiency (chronic) (peripheral); Z86.718 Personal history of other venous thrombosis and embolism | CPT/HCPCS: A9270; Q4133 ==

== ENCOUNTER 2021-12-26 00:57 | Day surgery (SDC) | payer OTHER | END 2021-12-26 22:56 | disposition home or self-care (01) | LOC: HBO 00:57 | DX: I70.248 Atherosclerosis of native arteries of left leg with ulceration of other part of lower leg (principal); I87.312 Chronic venous hypertension (idiopathic) with ulcer of left lower extremity; L97.822 Non-pressure chronic ulcer of other part of left lower leg with fat layer exposed; I87.2 Venous insufficiency (chronic) (peripheral) | CPT/HCPCS: G0277 ==

== ENCOUNTER 2021-12-27 02:25 | Day surgery (SDC) | payer OTHER | END 2021-12-27 22:52 | disposition home or self-care (01) | LOC: HBO 02:25 | DX: I70.248 Atherosclerosis of native arteries of left leg with ulceration of other part of lower leg (principal); I87.312 Chronic venous hypertension (idiopathic) with ulcer of left lower extremity; L97.822 Non-pressure chronic ulcer of other part of left lower leg with fat layer exposed; I87.2 Venous insufficiency (chronic) (peripheral) | CPT/HCPCS: G0277 ==

== ENCOUNTER 2021-12-28 01:57 | Day surgery (SDC) | payer OTHER | END 2021-12-28 23:38 | disposition home or self-care (01) | LOC: HBO 01:57 | DX: I70.248 Atherosclerosis of native arteries of left leg with ulceration of other part of lower leg (principal); I87.312 Chronic venous hypertension (idiopathic) with ulcer of left lower extremity; L97.822 Non-pressure chronic ulcer of other part of left lower leg with fat layer exposed; I87.2 Venous insufficiency (chronic) (peripheral) | CPT/HCPCS: G0277 ==

== ENCOUNTER 2021-12-30 02:16 | Day surgery (SDC) | payer OTHER | END 2021-12-30 23:59 | disposition home or self-care (01) | LOC: HBO 02:16 | DX: I70.248 Atherosclerosis of native arteries of left leg with ulceration of other part of lower leg (principal); I87.312 Chronic venous hypertension (idiopathic) with ulcer of left lower extremity; L97.822 Non-pressure chronic ulcer of other part of left lower leg with fat layer exposed; I87.2 Venous insufficiency (chronic) (peripheral) | CPT/HCPCS: G0277 ==

== ENCOUNTER 2022-01-02 01:29 | Day surgery (SDC) | payer OTHER | END 2022-01-02 23:30 | disposition home or self-care (01) | LOC: WOUND 01:29 | DX: I87.312 Chronic venous hypertension (idiopathic) with ulcer of left lower extremity (principal); I87.2 Venous insufficiency (chronic) (peripheral); I70.248 Atherosclerosis of native arteries of left leg with ulceration of other part of lower leg; L97.822 Non-pressure chronic ulcer of other part of left lower leg with fat layer exposed | CPT/HCPCS: A9270; Q4133 ==

== ENCOUNTER 2022-01-02 01:51 | Day surgery (SDC) | payer OTHER | END 2022-01-02 23:30 | disposition home or self-care (01) | LOC: HBO 01:51 | DX: I70.248 Atherosclerosis of native arteries of left leg with ulceration of other part of lower leg (principal); I87.312 Chronic venous hypertension (idiopathic) with ulcer of left lower extremity; L97.822 Non-pressure chronic ulcer of other part of left lower leg with fat layer exposed; I87.2 Venous insufficiency (chronic) (peripheral) | CPT/HCPCS: G0277 ==

== ENCOUNTER 2022-01-03 02:32 | Day surgery (SDC) | payer OTHER | END 2022-01-03 22:45 | disposition home or self-care (01) | LOC: HBO 02:32 | DX: I70.248 Atherosclerosis of native arteries of left leg with ulceration of other part of lower leg (principal); I87.312 Chronic venous hypertension (idiopathic) with ulcer of left lower extremity; L97.822 Non-pressure chronic ulcer of other part of left lower leg with fat layer exposed; I87.2 Venous insufficiency (chronic) (peripheral) | CPT/HCPCS: G0277 ==

== ENCOUNTER 2022-01-04 04:15 | Day surgery (SDC) | payer OTHER | END 2022-01-04 22:54 | disposition home or self-care (01) | LOC: HBO 04:15 | DX: I70.248 Atherosclerosis of native arteries of left leg with ulceration of other part of lower leg (principal); I87.312 Chronic venous hypertension (idiopathic) with ulcer of left lower extremity; L97.822 Non-pressure chronic ulcer of other part of left lower leg with fat layer exposed; I87.2 Venous insufficiency (chronic) (peripheral) | CPT/HCPCS: G0277 ==

== ENCOUNTER 2022-01-05 04:08 | Day surgery (SDC) | payer OTHER | END 2022-01-05 22:43 | disposition home or self-care (01) | LOC: HBO 04:08 | DX: I70.248 Atherosclerosis of native arteries of left leg with ulceration of other part of lower leg (principal); I87.312 Chronic venous hypertension (idiopathic) with ulcer of left lower extremity; L97.822 Non-pressure chronic ulcer of other part of left lower leg with fat layer exposed; I87.2 Venous insufficiency (chronic) (peripheral) | CPT/HCPCS: G0277 ==

== ENCOUNTER 2022-01-06 02:37 | Day surgery (SDC) | payer OTHER | END 2022-01-06 23:36 | disposition home or self-care (01) | LOC: HBO 02:37 | DX: I70.248 Atherosclerosis of native arteries of left leg with ulceration of other part of lower leg (principal); I87.312 Chronic venous hypertension (idiopathic) with ulcer of left lower extremity; L97.822 Non-pressure chronic ulcer of other part of left lower leg with fat layer exposed; I87.2 Venous insufficiency (chronic) (peripheral) | CPT/HCPCS: G0277 ==

== ENCOUNTER 2022-01-09 02:06 | Day surgery (SDC) | payer OTHER | END 2022-01-09 23:23 | disposition home or self-care (01) | LOC: WOUND 02:06 | DX: I70.248 Atherosclerosis of native arteries of left leg with ulceration of other part of lower leg (principal); I87.312 Chronic venous hypertension (idiopathic) with ulcer of left lower extremity; L97.825 Non-pressure chronic ulcer of other part of left lower leg with muscle involvement without evidence of necrosis; L97.822 Non-pressure chronic ulcer of other part of left lower leg with fat layer exposed; L97.322 Non-pressure chronic ulcer of left ankle with fat layer exposed; I87.2 Venous insufficiency (chronic) (peripheral) | CPT/HCPCS: A9270; G0463 ==

== ENCOUNTER 2022-01-09 02:23 | Day surgery (SDC) | payer OTHER | END 2022-01-09 23:23 | disposition home or self-care (01) | LOC: HBO 02:23 | DX: I70.248 Atherosclerosis of native arteries of left leg with ulceration of other part of lower leg (principal); I87.312 Chronic venous hypertension (idiopathic) with ulcer of left lower extremity; L97.822 Non-pressure chronic ulcer of other part of left lower leg with fat layer exposed; I87.2 Venous insufficiency (chronic) (peripheral) | CPT/HCPCS: G0277 ==

== ENCOUNTER 2022-01-10 02:50 | Day surgery (SDC) | payer OTHER | END 2022-01-10 23:10 | disposition home or self-care (01) | LOC: HBO 02:50 | DX: I70.248 Atherosclerosis of native arteries of left leg with ulceration of other part of lower leg (principal); I87.313 Chronic venous hypertension (idiopathic) with ulcer of bilateral lower extremity; L97.822 Non-pressure chronic ulcer of other part of left lower leg with fat layer exposed; I87.2 Venous insufficiency (chronic) (peripheral) | CPT/HCPCS: G0277 ==

== ENCOUNTER 2022-01-11 02:29 | Day surgery (SDC) | payer OTHER | END 2022-01-11 22:57 | disposition home or self-care (01) | LOC: HBO 02:29 | DX: I70.248 Atherosclerosis of native arteries of left leg with ulceration of other part of lower leg (principal); I87.312 Chronic venous hypertension (idiopathic) with ulcer of left lower extremity; L97.822 Non-pressure chronic ulcer of other part of left lower leg with fat layer exposed; I87.2 Venous insufficiency (chronic) (peripheral) | CPT/HCPCS: G0277 ==

== ENCOUNTER 2022-01-12 01:40 | Day surgery (SDC) | payer OTHER | END 2022-01-12 23:03 | disposition home or self-care (01) | LOC: HBO 01:40 | DX: I70.248 Atherosclerosis of native arteries of left leg with ulceration of other part of lower leg (principal); I87.312 Chronic venous hypertension (idiopathic) with ulcer of left lower extremity; L97.822 Non-pressure chronic ulcer of other part of left lower leg with fat layer exposed; I87.2 Venous insufficiency (chronic) (peripheral) | CPT/HCPCS: G0277 ==

== ENCOUNTER 2022-01-13 00:53 | Day surgery (SDC) | payer OTHER | END 2022-01-13 23:27 | disposition home or self-care (01) | LOC: HBO 00:53 | DX: I87.312 Chronic venous hypertension (idiopathic) with ulcer of left lower extremity (principal); I70.248 Atherosclerosis of native arteries of left leg with ulceration of other part of lower leg; L97.822 Non-pressure chronic ulcer of other part of left lower leg with fat layer exposed; I87.2 Venous insufficiency (chronic) (peripheral) | CPT/HCPCS: G0277 ==

== ENCOUNTER 2022-01-16 02:39 | Day surgery (SDC) | payer OTHER | END 2022-01-16 23:14 | disposition home or self-care (01) | LOC: WOUND 02:39 | DX: I87.312 Chronic venous hypertension (idiopathic) with ulcer of left lower extremity (principal); I70.248 Atherosclerosis of native arteries of left leg with ulceration of other part of lower leg; L97.825 Non-pressure chronic ulcer of other part of left lower leg with muscle involvement without evidence of necrosis; L97.822 Non-pressure chronic ulcer of other part of left lower leg with fat layer exposed; L97.322 Non-pressure chronic ulcer of left ankle with fat layer exposed; I87.2 Venous insufficiency (chronic) (peripheral); D68.59 Other primary thrombophilia; I10 Essential (primary) hypertension; Z86.718 Personal history of other venous thrombosis and embolism; Z79.01 Long term (current) use of anticoagulants | CPT/HCPCS: A9270; G0463 ==

== ENCOUNTER 2022-01-16 02:41 | Day surgery (SDC) | payer OTHER | END 2022-01-16 23:14 | disposition home or self-care (01) | LOC: HBO 02:41 | DX: I70.248 Atherosclerosis of native arteries of left leg with ulceration of other part of lower leg (principal); I87.312 Chronic venous hypertension (idiopathic) with ulcer of left lower extremity; L97.822 Non-pressure chronic ulcer of other part of left lower leg with fat layer exposed; I87.2 Venous insufficiency (chronic) (peripheral) | CPT/HCPCS: G0277 ==

== ENCOUNTER 2022-01-17 01:48 | Day surgery (SDC) | payer OTHER | END 2022-01-17 23:22 | disposition home or self-care (01) | LOC: HBO 01:48 | DX: I70.248 Atherosclerosis of native arteries of left leg with ulceration of other part of lower leg (principal); I87.312 Chronic venous hypertension (idiopathic) with ulcer of left lower extremity; L97.822 Non-pressure chronic ulcer of other part of left lower leg with fat layer exposed; I87.2 Venous insufficiency (chronic) (peripheral) | CPT/HCPCS: G0277 ==

== ENCOUNTER 2022-01-18 02:14 | Day surgery (SDC) | payer OTHER | END 2022-01-18 22:51 | disposition home or self-care (01) | LOC: HBO 02:14 | DX: I70.248 Atherosclerosis of native arteries of left leg with ulceration of other part of lower leg (principal); I87.312 Chronic venous hypertension (idiopathic) with ulcer of left lower extremity; L97.822 Non-pressure chronic ulcer of other part of left lower leg with fat layer exposed; I87.2 Venous insufficiency (chronic) (peripheral) | CPT/HCPCS: G0277 ==

== ENCOUNTER 2022-01-19 03:22 | Day surgery (SDC) | payer OTHER | END 2022-01-19 23:29 | disposition home or self-care (01) | LOC: HBO 03:22 | DX: I70.248 Atherosclerosis of native arteries of left leg with ulceration of other part of lower leg (principal); I87.312 Chronic venous hypertension (idiopathic) with ulcer of left lower extremity; L97.822 Non-pressure chronic ulcer of other part of left lower leg with fat layer exposed; I87.2 Venous insufficiency (chronic) (peripheral); Z86.718 Personal history of other venous thrombosis and embolism; Z79.01 Long term (current) use of anticoagulants | CPT/HCPCS: G0277 ==

== ENCOUNTER 2022-01-20 01:48 | Day surgery (SDC) | payer OTHER | END 2022-01-20 23:21 | disposition home or self-care (01) | LOC: HBO 01:48 | DX: I70.248 Atherosclerosis of native arteries of left leg with ulceration of other part of lower leg (principal); I87.312 Chronic venous hypertension (idiopathic) with ulcer of left lower extremity; L97.822 Non-pressure chronic ulcer of other part of left lower leg with fat layer exposed; I87.2 Venous insufficiency (chronic) (peripheral); I73.9 Peripheral vascular disease, unspecified | CPT/HCPCS: G0277 ==

== ENCOUNTER 2022-01-23 00:16 | Day surgery (SDC) | payer OTHER | END 2022-01-23 22:48 | disposition home or self-care (01) | LOC: WOUND 00:16 | DX: I70.248 Atherosclerosis of native arteries of left leg with ulceration of other part of lower leg (principal); I87.312 Chronic venous hypertension (idiopathic) with ulcer of left lower extremity; L97.825 Non-pressure chronic ulcer of other part of left lower leg with muscle involvement without evidence of necrosis; L97.822 Non-pressure chronic ulcer of other part of left lower leg with fat layer exposed; I87.2 Venous insufficiency (chronic) (peripheral); I10 Essential (primary) hypertension; I48.91 Unspecified atrial fibrillation; Z86.718 Personal history of other venous thrombosis and embolism; Z79.01 Long term (current) use of anticoagulants | CPT/HCPCS: A9270; G0463 ==

== ENCOUNTER 2022-01-23 00:19 | Day surgery (SDC) | payer OTHER | END 2022-01-23 22:48 | disposition home or self-care (01) | LOC: HBO 00:19 | DX: I70.248 Atherosclerosis of native arteries of left leg with ulceration of other part of lower leg (principal); I87.312 Chronic venous hypertension (idiopathic) with ulcer of left lower extremity; L97.822 Non-pressure chronic ulcer of other part of left lower leg with fat layer exposed; I87.2 Venous insufficiency (chronic) (peripheral) | CPT/HCPCS: G0277 ==

== ENCOUNTER 2022-01-24 03:01 | Day surgery (SDC) | payer OTHER | END 2022-01-24 23:32 | disposition home or self-care (01) | LOC: HBO 03:01 | DX: I70.248 Atherosclerosis of native arteries of left leg with ulceration of other part of lower leg (principal); I87.312 Chronic venous hypertension (idiopathic) with ulcer of left lower extremity; L97.822 Non-pressure chronic ulcer of other part of left lower leg with fat layer exposed; I87.2 Venous insufficiency (chronic) (peripheral) | CPT/HCPCS: G0277 ==

== ENCOUNTER 2022-01-25 01:37 | Day surgery (SDC) | payer OTHER | END 2022-01-25 23:42 | disposition home or self-care (01) | LOC: HBO 01:37 | DX: I70.248 Atherosclerosis of native arteries of left leg with ulceration of other part of lower leg (principal); I87.312 Chronic venous hypertension (idiopathic) with ulcer of left lower extremity; L97.822 Non-pressure chronic ulcer of other part of left lower leg with fat layer exposed; I87.2 Venous insufficiency (chronic) (peripheral); I73.9 Peripheral vascular disease, unspecified | CPT/HCPCS: G0277 ==

== ENCOUNTER 2022-01-26 03:53 | Day surgery (SDC) | payer OTHER | END 2022-01-26 23:02 | disposition home or self-care (01) | LOC: HBO 03:53 | DX: I70.248 Atherosclerosis of native arteries of left leg with ulceration of other part of lower leg (principal); I87.312 Chronic venous hypertension (idiopathic) with ulcer of left lower extremity; L97.822 Non-pressure chronic ulcer of other part of left lower leg with fat layer exposed; I87.2 Venous insufficiency (chronic) (peripheral) | CPT/HCPCS: G0277 ==

== ENCOUNTER 2022-01-30 02:53 | Day surgery (SDC) | payer OTHER | END 2022-01-30 22:56 | disposition home or self-care (01) | LOC: WOUND 02:53 | DX: I70.248 Atherosclerosis of native arteries of left leg with ulceration of other part of lower leg (principal); I87.312 Chronic venous hypertension (idiopathic) with ulcer of left lower extremity; L97.825 Non-pressure chronic ulcer of other part of left lower leg with muscle involvement without evidence of necrosis; I87.2 Venous insufficiency (chronic) (peripheral); D68.59 Other primary thrombophilia; Z86.718 Personal history of other venous thrombosis and embolism; Z79.01 Long term (current) use of anticoagulants | CPT/HCPCS: A9270; G0463 ==

== ENCOUNTER 2022-01-30 02:58 | Day surgery (SDC) | payer OTHER | END 2022-01-30 23:00 | disposition home or self-care (01) | LOC: HBO 02:58 | DX: I70.248 Atherosclerosis of native arteries of left leg with ulceration of other part of lower leg (principal); I87.312 Chronic venous hypertension (idiopathic) with ulcer of left lower extremity; L97.822 Non-pressure chronic ulcer of other part of left lower leg with fat layer exposed; I87.2 Venous insufficiency (chronic) (peripheral) | CPT/HCPCS: G0277 ==

== ENCOUNTER 2022-01-31 03:58 | Day surgery (SDC) | payer OTHER | END 2022-01-31 23:19 | disposition home or self-care (01) | LOC: HBO 03:58 | DX: I70.248 Atherosclerosis of native arteries of left leg with ulceration of other part of lower leg (principal); I87.312 Chronic venous hypertension (idiopathic) with ulcer of left lower extremity; L97.822 Non-pressure chronic ulcer of other part of left lower leg with fat layer exposed; I87.2 Venous insufficiency (chronic) (peripheral) | CPT/HCPCS: G0277 ==

== ENCOUNTER 2022-02-01 02:30 | Day surgery (SDC) | payer OTHER | END 2022-02-01 23:24 | disposition home or self-care (01) | LOC: HBO 02:30 | DX: I70.248 Atherosclerosis of native arteries of left leg with ulceration of other part of lower leg (principal); I87.312 Chronic venous hypertension (idiopathic) with ulcer of left lower extremity; L97.822 Non-pressure chronic ulcer of other part of left lower leg with fat layer exposed; I87.2 Venous insufficiency (chronic) (peripheral) | CPT/HCPCS: G0277 ==

== ENCOUNTER 2022-02-02 02:47 | Day surgery (SDC) | payer OTHER | END 2022-02-02 22:49 | disposition home or self-care (01) | LOC: HBO 02:47 | DX: I70.248 Atherosclerosis of native arteries of left leg with ulceration of other part of lower leg (principal); I87.312 Chronic venous hypertension (idiopathic) with ulcer of left lower extremity; L97.822 Non-pressure chronic ulcer of other part of left lower leg with fat layer exposed; I87.2 Venous insufficiency (chronic) (peripheral); I73.9 Peripheral vascular disease, unspecified | CPT/HCPCS: G0277 ==

== ENCOUNTER 2022-02-03 00:44 | Day surgery (SDC) | payer OTHER | END 2022-02-03 23:14 | disposition home or self-care (01) | LOC: HBO 00:44 | DX: I70.248 Atherosclerosis of native arteries of left leg with ulceration of other part of lower leg (principal); I87.312 Chronic venous hypertension (idiopathic) with ulcer of left lower extremity; L97.822 Non-pressure chronic ulcer of other part of left lower leg with fat layer exposed; I87.2 Venous insufficiency (chronic) (peripheral); I73.9 Peripheral vascular disease, unspecified | CPT/HCPCS: G0277 ==

== ENCOUNTER 2022-02-06 01:35 | Day surgery (SDC) | payer OTHER | END 2022-02-06 23:36 | disposition home or self-care (01) | LOC: WOUND 01:35 | DX: I70.248 Atherosclerosis of native arteries of left leg with ulceration of other part of lower leg (principal); I87.312 Chronic venous hypertension (idiopathic) with ulcer of left lower extremity; L97.822 Non-pressure chronic ulcer of other part of left lower leg with fat layer exposed; I87.2 Venous insufficiency (chronic) (peripheral) | CPT/HCPCS: A9270; G0463 ==

== ENCOUNTER 2022-02-06 01:39 | Day surgery (SDC) | payer OTHER | END 2022-02-06 23:36 | disposition home or self-care (01) | LOC: HBO 01:39 | DX: I70.248 Atherosclerosis of native arteries of left leg with ulceration of other part of lower leg (principal); I87.312 Chronic venous hypertension (idiopathic) with ulcer of left lower extremity; L97.822 Non-pressure chronic ulcer of other part of left lower leg with fat layer exposed; I87.2 Venous insufficiency (chronic) (peripheral) | CPT/HCPCS: G0277 ==

== ENCOUNTER 2022-02-07 08:00 | Day surgery (SDC) | payer OTHER | END 2022-02-07 23:59 | disposition home or self-care (01) | LOC: HBO 08:00 | DX: I70.248 Atherosclerosis of native arteries of left leg with ulceration of other part of lower leg (principal); I87.312 Chronic venous hypertension (idiopathic) with ulcer of left lower extremity; L97.822 Non-pressure chronic ulcer of other part of left lower leg with fat layer exposed; I87.2 Venous insufficiency (chronic) (peripheral) | CPT/HCPCS: G0277 ==

== ENCOUNTER 2022-02-08 00:42 | Day surgery (SDC) | payer OTHER | END 2022-02-08 23:32 | disposition home or self-care (01) | LOC: HBO 00:42 | DX: I70.248 Atherosclerosis of native arteries of left leg with ulceration of other part of lower leg (principal); I87.312 Chronic venous hypertension (idiopathic) with ulcer of left lower extremity; L97.822 Non-pressure chronic ulcer of other part of left lower leg with fat layer exposed; I87.2 Venous insufficiency (chronic) (peripheral) | CPT/HCPCS: G0277 ==

== ENCOUNTER 2022-02-09 00:49 | Day surgery (SDC) | payer OTHER | END 2022-02-09 22:43 | disposition home or self-care (01) | LOC: HBO 00:49 | DX: I70.248 Atherosclerosis of native arteries of left leg with ulceration of other part of lower leg (principal); I87.312 Chronic venous hypertension (idiopathic) with ulcer of left lower extremity; L97.822 Non-pressure chronic ulcer of other part of left lower leg with fat layer exposed; I87.2 Venous insufficiency (chronic) (peripheral) | CPT/HCPCS: G0277 ==

== ENCOUNTER 2022-02-10 00:32 | Day surgery (SDC) | payer OTHER | END 2022-02-10 22:50 | disposition home or self-care (01) | LOC: HBO 00:32 | DX: I70.248 Atherosclerosis of native arteries of left leg with ulceration of other part of lower leg (principal); I87.312 Chronic venous hypertension (idiopathic) with ulcer of left lower extremity; L97.822 Non-pressure chronic ulcer of other part of left lower leg with fat layer exposed; I87.2 Venous insufficiency (chronic) (peripheral) | CPT/HCPCS: G0277 ==

== ENCOUNTER 2022-02-13 01:49 | Day surgery (SDC) | payer OTHER | END 2022-02-13 23:28 | disposition home or self-care (01) | LOC: WOUND 01:49 | DX: I70.248 Atherosclerosis of native arteries of left leg with ulceration of other part of lower leg (principal); I87.312 Chronic venous hypertension (idiopathic) with ulcer of left lower extremity; L97.825 Non-pressure chronic ulcer of other part of left lower leg with muscle involvement without evidence of necrosis; D68.59 Other primary thrombophilia; I10 Essential (primary) hypertension; I48.91 Unspecified atrial fibrillation; I87.2 Venous insufficiency (chronic) (peripheral); Z86.718 Personal history of other venous thrombosis and embolism; Z79.01 Long term (current) use of anticoagulants | CPT/HCPCS: A9270; G0463 ==

== ENCOUNTER 2022-02-13 01:52 | Day surgery (SDC) | payer OTHER | END 2022-02-13 23:28 | disposition home or self-care (01) | LOC: HBO 01:52 | DX: I70.248 Atherosclerosis of native arteries of left leg with ulceration of other part of lower leg (principal); I87.312 Chronic venous hypertension (idiopathic) with ulcer of left lower extremity; L97.822 Non-pressure chronic ulcer of other part of left lower leg with fat layer exposed; I87.2 Venous insufficiency (chronic) (peripheral) | CPT/HCPCS: G0277 ==

== ENCOUNTER 2022-02-14 03:24 | Day surgery (SDC) | payer OTHER | END 2022-02-14 22:44 | disposition home or self-care (01) | LOC: HBO 03:24 | DX: I70.248 Atherosclerosis of native arteries of left leg with ulceration of other part of lower leg (principal); I87.312 Chronic venous hypertension (idiopathic) with ulcer of left lower extremity; L97.822 Non-pressure chronic ulcer of other part of left lower leg with fat layer exposed; I87.2 Venous insufficiency (chronic) (peripheral) | CPT/HCPCS: G0277 ==

== ENCOUNTER 2022-02-15 01:08 | Day surgery (SDC) | payer OTHER | END 2022-02-15 23:09 | disposition home or self-care (01) | LOC: HBO 01:08 | DX: I70.248 Atherosclerosis of native arteries of left leg with ulceration of other part of lower leg (principal); I87.312 Chronic venous hypertension (idiopathic) with ulcer of left lower extremity; L97.822 Non-pressure chronic ulcer of other part of left lower leg with fat layer exposed; I87.2 Venous insufficiency (chronic) (peripheral) | CPT/HCPCS: G0277 ==

== ENCOUNTER 2022-02-20 01:15 | Day surgery (SDC) | payer OTHER | END 2022-02-20 23:34 | disposition home or self-care (01) | DX: I87.312 Chronic venous hypertension (idiopathic) with ulcer of left lower extremity (principal); L97.822 Non-pressure chronic ulcer of other part of left lower leg with fat layer exposed; I70.248 Atherosclerosis of native arteries of left leg with ulceration of other part of lower leg; I87.2 Venous insufficiency (chronic) (peripheral) ==

== ENCOUNTER 2022-02-20 01:18 | Day surgery (SDC) | payer OTHER | END 2022-02-20 23:35 | disposition home or self-care (01) | DX: I70.248 Atherosclerosis of native arteries of left leg with ulceration of other part of lower leg (principal); I87.312 Chronic venous hypertension (idiopathic) with ulcer of left lower extremity; L97.822 Non-pressure chronic ulcer of other part of left lower leg with fat layer exposed; I87.2 Venous insufficiency (chronic) (peripheral) ==

== ENCOUNTER 2022-02-21 00:22 | Day surgery (SDC) | payer OTHER | END 2022-02-21 22:59 | disposition home or self-care (01) | LOC: HBO 00:22 | DX: I70.248 Atherosclerosis of native arteries of left leg with ulceration of other part of lower leg (principal); I87.312 Chronic venous hypertension (idiopathic) with ulcer of left lower extremity; L97.822 Non-pressure chronic ulcer of other part of left lower leg with fat layer exposed; I87.2 Venous insufficiency (chronic) (peripheral) | CPT/HCPCS: G0277 ==

== ENCOUNTER 2022-02-22 02:23 | Day surgery (SDC) | payer OTHER | END 2022-02-22 23:03 | disposition home or self-care (01) | LOC: HBO 02:23 | DX: I70.42 Atherosclerosis of autologous vein bypass graft(s) of the extremities with rest pain (principal); I87.312 Chronic venous hypertension (idiopathic) with ulcer of left lower extremity; L97.822 Non-pressure chronic ulcer of other part of left lower leg with fat layer exposed; I87.2 Venous insufficiency (chronic) (peripheral) | CPT/HCPCS: G0277 ==

== ENCOUNTER 2022-02-23 03:40 | Day surgery (SDC) | payer OTHER | END 2022-02-23 23:34 | disposition home or self-care (01) | LOC: HBO 03:40 | DX: I70.248 Atherosclerosis of native arteries of left leg with ulceration of other part of lower leg (principal); I87.312 Chronic venous hypertension (idiopathic) with ulcer of left lower extremity; L97.822 Non-pressure chronic ulcer of other part of left lower leg with fat layer exposed; I87.2 Venous insufficiency (chronic) (peripheral) | CPT/HCPCS: G0277 ==

== ENCOUNTER 2022-02-24 02:06 | Day surgery (SDC) | payer OTHER | END 2022-02-24 22:56 | disposition home or self-care (01) | LOC: HBO 02:06 | DX: I70.248 Atherosclerosis of native arteries of left leg with ulceration of other part of lower leg (principal); I87.312 Chronic venous hypertension (idiopathic) with ulcer of left lower extremity; L97.822 Non-pressure chronic ulcer of other part of left lower leg with fat layer exposed; I87.2 Venous insufficiency (chronic) (peripheral) | CPT/HCPCS: G0277 ==

== ENCOUNTER 2022-02-27 01:00 | Day surgery (SDC) | payer OTHER | END 2022-02-27 22:57 | disposition home or self-care (01) | LOC: WOUND 01:00 | DX: L97.825 Non-pressure chronic ulcer of other part of left lower leg with muscle involvement without evidence of necrosis (principal); I70.248 Atherosclerosis of native arteries of left leg with ulceration of other part of lower leg; I87.312 Chronic venous hypertension (idiopathic) with ulcer of left lower extremity; I87.2 Venous insufficiency (chronic) (peripheral); Z86.718 Personal history of other venous thrombosis and embolism; Z79.01 Long term (current) use of anticoagulants | CPT/HCPCS: A9270; Q4133 ==

== ENCOUNTER 2022-02-27 01:09 | Day surgery (SDC) | payer OTHER | END 2022-02-27 22:57 | disposition home or self-care (01) | LOC: HBO 01:09 | DX: I87.312 Chronic venous hypertension (idiopathic) with ulcer of left lower extremity (principal); L97.822 Non-pressure chronic ulcer of other part of left lower leg with fat layer exposed; I70.248 Atherosclerosis of native arteries of left leg with ulceration of other part of lower leg; I87.2 Venous insufficiency (chronic) (peripheral) | CPT/HCPCS: G0277 ==

== ENCOUNTER 2022-02-28 02:15 | Day surgery (SDC) | payer OTHER | END 2022-02-28 23:05 | disposition home or self-care (01) | LOC: HBO 02:15 | DX: I70.248 Atherosclerosis of native arteries of left leg with ulceration of other part of lower leg (principal); I87.312 Chronic venous hypertension (idiopathic) with ulcer of left lower extremity; L97.822 Non-pressure chronic ulcer of other part of left lower leg with fat layer exposed; I87.2 Venous insufficiency (chronic) (peripheral) | CPT/HCPCS: G0277 ==

== ENCOUNTER 2022-03-01 06:15 | Day surgery (SDC) | payer OTHER | END 2022-03-01 23:02 | disposition home or self-care (01) | LOC: HBO 06:15 | DX: I70.248 Atherosclerosis of native arteries of left leg with ulceration of other part of lower leg (principal); I87.312 Chronic venous hypertension (idiopathic) with ulcer of left lower extremity; L97.822 Non-pressure chronic ulcer of other part of left lower leg with fat layer exposed; I87.2 Venous insufficiency (chronic) (peripheral) | CPT/HCPCS: G0277 ==

== ENCOUNTER 2022-03-02 01:37 | Day surgery (SDC) | payer OTHER | END 2022-03-02 22:38 | disposition home or self-care (01) | LOC: HBO 01:37 | DX: I70.248 Atherosclerosis of native arteries of left leg with ulceration of other part of lower leg (principal); I87.312 Chronic venous hypertension (idiopathic) with ulcer of left lower extremity; L97.822 Non-pressure chronic ulcer of other part of left lower leg with fat layer exposed; I87.2 Venous insufficiency (chronic) (peripheral) | CPT/HCPCS: G0277 ==

== ENCOUNTER 2022-03-03 00:36 | Day surgery (SDC) | payer OTHER | END 2022-03-03 23:08 | disposition home or self-care (01) | LOC: HBO 00:36 | DX: I70.248 Atherosclerosis of native arteries of left leg with ulceration of other part of lower leg (principal); I87.312 Chronic venous hypertension (idiopathic) with ulcer of left lower extremity; L97.822 Non-pressure chronic ulcer of other part of left lower leg with fat layer exposed; I87.2 Venous insufficiency (chronic) (peripheral) | CPT/HCPCS: G0277 ==

== ENCOUNTER 2022-03-06 01:26 | Day surgery (SDC) | payer OTHER | END 2022-03-06 23:05 | disposition home or self-care (01) | LOC: WOUND 01:26 | DX: I87.312 Chronic venous hypertension (idiopathic) with ulcer of left lower extremity (principal); I70.248 Atherosclerosis of native arteries of left leg with ulceration of other part of lower leg; L97.822 Non-pressure chronic ulcer of other part of left lower leg with fat layer exposed; I87.2 Venous insufficiency (chronic) (peripheral) | CPT/HCPCS: A9270; Q4133 ==

== ENCOUNTER 2022-03-06 01:28 | Day surgery (SDC) | payer OTHER | END 2022-03-06 23:05 | disposition home or self-care (01) | LOC: HBO 01:28 | DX: I70.248 Atherosclerosis of native arteries of left leg with ulceration of other part of lower leg (principal); I87.312 Chronic venous hypertension (idiopathic) with ulcer of left lower extremity; L97.822 Non-pressure chronic ulcer of other part of left lower leg with fat layer exposed; I87.2 Venous insufficiency (chronic) (peripheral) | CPT/HCPCS: G0277 ==

== ENCOUNTER 2022-03-07 02:50 | Day surgery (SDC) | payer OTHER | END 2022-03-07 23:04 | disposition home or self-care (01) | LOC: HBO 02:50 | DX: I70.248 Atherosclerosis of native arteries of left leg with ulceration of other part of lower leg (principal); I87.312 Chronic venous hypertension (idiopathic) with ulcer of left lower extremity; L97.822 Non-pressure chronic ulcer of other part of left lower leg with fat layer exposed; I87.2 Venous insufficiency (chronic) (peripheral) | CPT/HCPCS: G0277 ==

== ENCOUNTER 2022-03-08 01:41 | Day surgery (SDC) | payer OTHER | END 2022-03-08 22:55 | disposition home or self-care (01) | LOC: HBO 01:41 | DX: I70.248 Atherosclerosis of native arteries of left leg with ulceration of other part of lower leg (principal); I87.312 Chronic venous hypertension (idiopathic) with ulcer of left lower extremity; L97.822 Non-pressure chronic ulcer of other part of left lower leg with fat layer exposed; I87.2 Venous insufficiency (chronic) (peripheral) | CPT/HCPCS: G0277 ==

== ENCOUNTER 2022-03-10 01:11 | Day surgery (SDC) | payer OTHER | END 2022-03-10 23:13 | disposition home or self-care (01) | LOC: HBO 01:11 | DX: I70.248 Atherosclerosis of native arteries of left leg with ulceration of other part of lower leg (principal); I87.312 Chronic venous hypertension (idiopathic) with ulcer of left lower extremity; L97.822 Non-pressure chronic ulcer of other part of left lower leg with fat layer exposed; E11.51 Type 2 diabetes mellitus with diabetic peripheral angiopathy without gangrene; I87.2 Venous insufficiency (chronic) (peripheral) | CPT/HCPCS: G0277 ==

== ENCOUNTER 2022-03-13 00:55 | Day surgery (SDC) | payer OTHER | END 2022-03-13 22:53 | disposition home or self-care (01) | LOC: WOUND 00:55 | DX: I87.312 Chronic venous hypertension (idiopathic) with ulcer of left lower extremity (principal); L97.822 Non-pressure chronic ulcer of other part of left lower leg with fat layer exposed; Z86.718 Personal history of other venous thrombosis and embolism; Z79.01 Long term (current) use of anticoagulants; I70.248 Atherosclerosis of native arteries of left leg with ulceration of other part of lower leg; I87.2 Venous insufficiency (chronic) (peripheral) | CPT/HCPCS: A9270; Q4133 ==

== ENCOUNTER 2022-03-13 01:14 | Day surgery (SDC) | payer OTHER | END 2022-03-13 22:53 | disposition home or self-care (01) | LOC: HBO 01:14 | DX: I70.248 Atherosclerosis of native arteries of left leg with ulceration of other part of lower leg (principal); I87.312 Chronic venous hypertension (idiopathic) with ulcer of left lower extremity; L97.822 Non-pressure chronic ulcer of other part of left lower leg with fat layer exposed; I87.2 Venous insufficiency (chronic) (peripheral) | CPT/HCPCS: G0277 ==

== ENCOUNTER 2022-03-14 02:07 | Day surgery (SDC) | payer OTHER | END 2022-03-14 22:45 | disposition home or self-care (01) | LOC: HBO 02:07 | DX: I70.248 Atherosclerosis of native arteries of left leg with ulceration of other part of lower leg (principal); I87.312 Chronic venous hypertension (idiopathic) with ulcer of left lower extremity; L97.822 Non-pressure chronic ulcer of other part of left lower leg with fat layer exposed; I87.2 Venous insufficiency (chronic) (peripheral) | CPT/HCPCS: G0277 ==

== ENCOUNTER 2022-03-15 00:51 | Day surgery (SDC) | payer OTHER | END 2022-03-15 23:58 | disposition home or self-care (01) | LOC: HBO 00:51 | DX: I70.248 Atherosclerosis of native arteries of left leg with ulceration of other part of lower leg (principal); I87.312 Chronic venous hypertension (idiopathic) with ulcer of left lower extremity; L97.822 Non-pressure chronic ulcer of other part of left lower leg with fat layer exposed; I87.2 Venous insufficiency (chronic) (peripheral) | CPT/HCPCS: G0277 ==

== ENCOUNTER 2022-03-16 01:14 | Day surgery (SDC) | payer OTHER | END 2022-03-16 23:09 | disposition home or self-care (01) | LOC: HBO 01:14 | DX: I70.248 Atherosclerosis of native arteries of left leg with ulceration of other part of lower leg (principal); I87.312 Chronic venous hypertension (idiopathic) with ulcer of left lower extremity; L97.822 Non-pressure chronic ulcer of other part of left lower leg with fat layer exposed; I87.2 Venous insufficiency (chronic) (peripheral) | CPT/HCPCS: G0277 ==

== ENCOUNTER 2022-03-17 01:38 | Day surgery (SDC) | payer OTHER | END 2022-03-18 23:33 | disposition home or self-care (01) | LOC: HBO 01:38 | DX: I70.248 Atherosclerosis of native arteries of left leg with ulceration of other part of lower leg (principal); I87.312 Chronic venous hypertension (idiopathic) with ulcer of left lower extremity; L97.822 Non-pressure chronic ulcer of other part of left lower leg with fat layer exposed; I87.2 Venous insufficiency (chronic) (peripheral) | CPT/HCPCS: G0277 ==

== ENCOUNTER 2022-03-28 01:23 | Day surgery (SDC) | payer OTHER | END 2022-03-28 22:41 | disposition home or self-care (01) | LOC: HBO 01:23 | DX: I70.248 Atherosclerosis of native arteries of left leg with ulceration of other part of lower leg (principal); I87.312 Chronic venous hypertension (idiopathic) with ulcer of left lower extremity; L97.822 Non-pressure chronic ulcer of other part of left lower leg with fat layer exposed; I87.2 Venous insufficiency (chronic) (peripheral) | CPT/HCPCS: G0277 ==

== ENCOUNTER 2022-03-29 00:34 | Day surgery (SDC) | payer OTHER | END 2022-03-29 23:10 | disposition home or self-care (01) | LOC: WOUND 00:34 | DX: I87.312 Chronic venous hypertension (idiopathic) with ulcer of left lower extremity (principal); I70.248 Atherosclerosis of native arteries of left leg with ulceration of other part of lower leg; L97.822 Non-pressure chronic ulcer of other part of left lower leg with fat layer exposed; I87.2 Venous insufficiency (chronic) (peripheral) | CPT/HCPCS: A9270; Q4133 ==

== ENCOUNTER 2022-03-29 00:39 | Day surgery (SDC) | payer OTHER | END 2022-03-29 23:10 | disposition home or self-care (01) | LOC: HBO 00:39 | DX: I70.248 Atherosclerosis of native arteries of left leg with ulceration of other part of lower leg (principal); I87.312 Chronic venous hypertension (idiopathic) with ulcer of left lower extremity; L97.822 Non-pressure chronic ulcer of other part of left lower leg with fat layer exposed; I87.2 Venous insufficiency (chronic) (peripheral) | CPT/HCPCS: G0277 ==

== ENCOUNTER 2022-03-30 04:05 | Day surgery (SDC) | payer OTHER | END 2022-03-30 22:47 | disposition home or self-care (01) | LOC: HBO 04:05 | DX: I70.248 Atherosclerosis of native arteries of left leg with ulceration of other part of lower leg (principal); I87.312 Chronic venous hypertension (idiopathic) with ulcer of left lower extremity; L97.822 Non-pressure chronic ulcer of other part of left lower leg with fat layer exposed; I87.2 Venous insufficiency (chronic) (peripheral) | CPT/HCPCS: G0277 ==

== ENCOUNTER 2022-04-05 04:05 | Day surgery (SDC) | payer OTHER | END 2022-04-05 23:06 | disposition home or self-care (01) | LOC: HBO 04:05 | DX: I87.312 Chronic venous hypertension (idiopathic) with ulcer of left lower extremity (principal); I70.248 Atherosclerosis of native arteries of left leg with ulceration of other part of lower leg; L97.822 Non-pressure chronic ulcer of other part of left lower leg with fat layer exposed; I87.2 Venous insufficiency (chronic) (peripheral) | CPT/HCPCS: G0277 ==

== ENCOUNTER 2022-04-06 01:02 | Day surgery (SDC) | payer OTHER | END 2022-04-06 22:43 | disposition home or self-care (01) | LOC: HBO 01:02 | DX: I87.312 Chronic venous hypertension (idiopathic) with ulcer of left lower extremity (principal); I70.248 Atherosclerosis of native arteries of left leg with ulceration of other part of lower leg; L97.822 Non-pressure chronic ulcer of other part of left lower leg with fat layer exposed; I87.2 Venous insufficiency (chronic) (peripheral); I77.1 Stricture of artery | CPT/HCPCS: G0277 ==

== ENCOUNTER 2022-04-07 03:06 | Day surgery (SDC) | payer OTHER | END 2022-04-07 23:07 | disposition home or self-care (01) | LOC: HBO 03:06 | DX: I87.2 Venous insufficiency (chronic) (peripheral) (principal); L97.822 Non-pressure chronic ulcer of other part of left lower leg with fat layer exposed; I70.248 Atherosclerosis of native arteries of left leg with ulceration of other part of lower leg; I87.312 Chronic venous hypertension (idiopathic) with ulcer of left lower extremity | CPT/HCPCS: G0277 ==

== ENCOUNTER 2022-04-10 02:58 | Day surgery (SDC) | payer OTHER | END 2022-04-10 23:08 | disposition home or self-care (01) | LOC: WOUND 02:58 | DX: I87.312 Chronic venous hypertension (idiopathic) with ulcer of left lower extremity (principal); L97.822 Non-pressure chronic ulcer of other part of left lower leg with fat layer exposed; I87.2 Venous insufficiency (chronic) (peripheral); I70.248 Atherosclerosis of native arteries of left leg with ulceration of other part of lower leg | CPT/HCPCS: A9270; G0463 ==

== ENCOUNTER 2022-04-10 03:02 | Day surgery (SDC) | payer OTHER | END 2022-04-10 23:08 | disposition home or self-care (01) | LOC: HBO 03:02 | DX: I70.248 Atherosclerosis of native arteries of left leg with ulceration of other part of lower leg (principal); I87.312 Chronic venous hypertension (idiopathic) with ulcer of left lower extremity; L97.822 Non-pressure chronic ulcer of other part of left lower leg with fat layer exposed; I87.2 Venous insufficiency (chronic) (peripheral) | CPT/HCPCS: G0277 ==

== ENCOUNTER 2022-04-11 01:17 | Day surgery (SDC) | payer OTHER | END 2022-04-11 22:47 | disposition home or self-care (01) | LOC: HBO 01:17 | DX: I70.248 Atherosclerosis of native arteries of left leg with ulceration of other part of lower leg (principal); I87.312 Chronic venous hypertension (idiopathic) with ulcer of left lower extremity; L97.822 Non-pressure chronic ulcer of other part of left lower leg with fat layer exposed | CPT/HCPCS: G0277 ==

== ENCOUNTER 2022-04-12 05:23 | Day surgery (SDC) | payer OTHER | END 2022-04-12 23:04 | disposition home or self-care (01) | LOC: HBO 05:23 | DX: I87.2 Venous insufficiency (chronic) (peripheral) (principal); L97.822 Non-pressure chronic ulcer of other part of left lower leg with fat layer exposed; I70.248 Atherosclerosis of native arteries of left leg with ulceration of other part of lower leg; I87.312 Chronic venous hypertension (idiopathic) with ulcer of left lower extremity | CPT/HCPCS: G0277 ==

== ENCOUNTER 2022-04-17 01:08 | Day surgery (SDC) | payer OTHER | END 2022-04-17 22:59 | disposition home or self-care (01) | LOC: WOUND 01:08 | DX: I87.312 Chronic venous hypertension (idiopathic) with ulcer of left lower extremity (principal); I87.2 Venous insufficiency (chronic) (peripheral); L97.822 Non-pressure chronic ulcer of other part of left lower leg with fat layer exposed; I70.248 Atherosclerosis of native arteries of left leg with ulceration of other part of lower leg | CPT/HCPCS: A9270; Q4133 ==

== ENCOUNTER 2022-04-17 01:11 | Day surgery (SDC) | payer OTHER | END 2022-04-17 22:59 | disposition home or self-care (01) | LOC: HBO 01:11 | DX: I87.2 Venous insufficiency (chronic) (peripheral) (principal); L97.822 Non-pressure chronic ulcer of other part of left lower leg with fat layer exposed; I70.248 Atherosclerosis of native arteries of left leg with ulceration of other part of lower leg; I87.312 Chronic venous hypertension (idiopathic) with ulcer of left lower extremity | CPT/HCPCS: G0277 ==

== ENCOUNTER 2022-04-18 04:43 | Day surgery (SDC) | payer OTHER | END 2022-04-18 22:56 | disposition home or self-care (01) | LOC: HBO 04:43 | DX: I70.248 Atherosclerosis of native arteries of left leg with ulceration of other part of lower leg (principal); I87.312 Chronic venous hypertension (idiopathic) with ulcer of left lower extremity; L97.822 Non-pressure chronic ulcer of other part of left lower leg with fat layer exposed; I87.2 Venous insufficiency (chronic) (peripheral) | CPT/HCPCS: G0277 ==

== ENCOUNTER 2022-04-19 01:36 | Day surgery (SDC) | payer OTHER | END 2022-04-19 22:54 | disposition home or self-care (01) | LOC: HBO 01:36 | DX: I70.248 Atherosclerosis of native arteries of left leg with ulceration of other part of lower leg (principal); I87.312 Chronic venous hypertension (idiopathic) with ulcer of left lower extremity; I87.2 Venous insufficiency (chronic) (peripheral); L97.822 Non-pressure chronic ulcer of other part of left lower leg with fat layer exposed | CPT/HCPCS: G0277 ==

== ENCOUNTER 2022-04-20 02:53 | Day surgery (SDC) | payer OTHER | END 2022-04-20 23:09 | disposition home or self-care (01) | LOC: HBO 02:53 | DX: I70.248 Atherosclerosis of native arteries of left leg with ulceration of other part of lower leg (principal); I87.312 Chronic venous hypertension (idiopathic) with ulcer of left lower extremity; L97.822 Non-pressure chronic ulcer of other part of left lower leg with fat layer exposed; I87.2 Venous insufficiency (chronic) (peripheral) | CPT/HCPCS: G0277 ==

== ENCOUNTER 2022-04-21 01:52 | Day surgery (SDC) | payer OTHER | END 2022-04-21 22:48 | disposition home or self-care (01) | LOC: HBO 01:52 | DX: I70.248 Atherosclerosis of native arteries of left leg with ulceration of other part of lower leg (principal); I87.312 Chronic venous hypertension (idiopathic) with ulcer of left lower extremity; I87.2 Venous insufficiency (chronic) (peripheral); L97.822 Non-pressure chronic ulcer of other part of left lower leg with fat layer exposed | CPT/HCPCS: G0277 ==

== ENCOUNTER 2022-04-24 00:13 | Day surgery (SDC) | payer OTHER | END 2022-04-24 22:59 | disposition home or self-care (01) | LOC: HBO 00:13 | DX: I87.312 Chronic venous hypertension (idiopathic) with ulcer of left lower extremity (principal); I70.248 Atherosclerosis of native arteries of left leg with ulceration of other part of lower leg; L97.822 Non-pressure chronic ulcer of other part of left lower leg with fat layer exposed; I87.2 Venous insufficiency (chronic) (peripheral) | CPT/HCPCS: G0277 ==

== ENCOUNTER 2022-04-25 00:26 | Day surgery (SDC) | payer OTHER | END 2022-04-25 22:55 | disposition home or self-care (01) | LOC: HBO 00:26 | DX: I70.248 Atherosclerosis of native arteries of left leg with ulceration of other part of lower leg (principal); I87.312 Chronic venous hypertension (idiopathic) with ulcer of left lower extremity; I87.2 Venous insufficiency (chronic) (peripheral); L97.822 Non-pressure chronic ulcer of other part of left lower leg with fat layer exposed | CPT/HCPCS: G0277 ==

== ENCOUNTER 2022-04-26 00:21 | Day surgery (SDC) | payer OTHER | END 2022-04-26 23:37 | disposition home or self-care (01) | LOC: HBO 00:21 | DX: I87.312 Chronic venous hypertension (idiopathic) with ulcer of left lower extremity (principal); L97.822 Non-pressure chronic ulcer of other part of left lower leg with fat layer exposed; I70.248 Atherosclerosis of native arteries of left leg with ulceration of other part of lower leg; I87.2 Venous insufficiency (chronic) (peripheral) | CPT/HCPCS: G0277 ==

== ENCOUNTER 2022-04-27 03:27 | Day surgery (SDC) | payer OTHER | END 2022-04-27 23:33 | disposition home or self-care (01) | LOC: HBO 03:27 | DX: I70.248 Atherosclerosis of native arteries of left leg with ulceration of other part of lower leg (principal); I87.312 Chronic venous hypertension (idiopathic) with ulcer of left lower extremity; L97.822 Non-pressure chronic ulcer of other part of left lower leg with fat layer exposed; I87.2 Venous insufficiency (chronic) (peripheral) | CPT/HCPCS: G0277 ==

== ENCOUNTER 2022-04-28 01:43 | Day surgery (SDC) | payer OTHER | END 2022-04-28 22:51 | disposition home or self-care (01) | LOC: HBO 01:43 | DX: I70.248 Atherosclerosis of native arteries of left leg with ulceration of other part of lower leg (principal); I87.312 Chronic venous hypertension (idiopathic) with ulcer of left lower extremity; I87.2 Venous insufficiency (chronic) (peripheral); L97.822 Non-pressure chronic ulcer of other part of left lower leg with fat layer exposed | CPT/HCPCS: G0277 ==

== ENCOUNTER 2022-05-01 00:17 | Day surgery (SDC) | payer OTHER | END 2022-05-01 23:14 | disposition home or self-care (01) | LOC: WOUND 00:17 | DX: I70.248 Atherosclerosis of native arteries of left leg with ulceration of other part of lower leg (principal); I87.312 Chronic venous hypertension (idiopathic) with ulcer of left lower extremity; I87.2 Venous insufficiency (chronic) (peripheral); L97.822 Non-pressure chronic ulcer of other part of left lower leg with fat layer exposed | CPT/HCPCS: A9270; Q4133 ==

== ENCOUNTER 2022-05-01 00:19 | Day surgery (SDC) | payer OTHER | END 2022-05-01 23:15 | disposition home or self-care (01) | LOC: HBO 00:19 | DX: I87.312 Chronic venous hypertension (idiopathic) with ulcer of left lower extremity (principal); I70.248 Atherosclerosis of native arteries of left leg with ulceration of other part of lower leg; L97.822 Non-pressure chronic ulcer of other part of left lower leg with fat layer exposed; I87.2 Venous insufficiency (chronic) (peripheral) | CPT/HCPCS: G0277 ==

== ENCOUNTER 2022-05-02 01:02 | Day surgery (SDC) | payer OTHER | END 2022-05-02 22:58 | disposition home or self-care (01) | LOC: HBO 01:02 | DX: I70.248 Atherosclerosis of native arteries of left leg with ulceration of other part of lower leg (principal); I87.312 Chronic venous hypertension (idiopathic) with ulcer of left lower extremity; L97.822 Non-pressure chronic ulcer of other part of left lower leg with fat layer exposed; I87.2 Venous insufficiency (chronic) (peripheral) | CPT/HCPCS: G0277 ==

== ENCOUNTER 2022-05-03 00:36 | Day surgery (SDC) | payer OTHER | END 2022-05-03 22:53 | disposition home or self-care (01) | LOC: HBO 00:36 | DX: I70.248 Atherosclerosis of native arteries of left leg with ulceration of other part of lower leg (principal); I87.312 Chronic venous hypertension (idiopathic) with ulcer of left lower extremity; I87.2 Venous insufficiency (chronic) (peripheral); L97.822 Non-pressure chronic ulcer of other part of left lower leg with fat layer exposed | CPT/HCPCS: G0277 ==

== ENCOUNTER 2022-05-04 02:30 | Day surgery (SDC) | payer OTHER | END 2022-05-04 22:56 | disposition home or self-care (01) | LOC: HBO 02:30 | DX: I87.2 Venous insufficiency (chronic) (peripheral) (principal); L97.822 Non-pressure chronic ulcer of other part of left lower leg with fat layer exposed; I70.248 Atherosclerosis of native arteries of left leg with ulceration of other part of lower leg; I87.312 Chronic venous hypertension (idiopathic) with ulcer of left lower extremity | CPT/HCPCS: G0277 ==

== ENCOUNTER 2022-05-05 01:08 | Day surgery (SDC) | payer OTHER | END 2022-05-06 22:46 | disposition home or self-care (01) | LOC: HBO 01:08 | DX: I70.248 Atherosclerosis of native arteries of left leg with ulceration of other part of lower leg (principal); I87.312 Chronic venous hypertension (idiopathic) with ulcer of left lower extremity; I87.2 Venous insufficiency (chronic) (peripheral); L97.822 Non-pressure chronic ulcer of other part of left lower leg with fat layer exposed | CPT/HCPCS: G0277 ==

== ENCOUNTER 2022-05-10 08:00 | Day surgery (SDC) | payer OTHER | END 2022-05-10 23:59 | disposition home or self-care (01) | LOC: HBO 08:00 | DX: I87.312 Chronic venous hypertension (idiopathic) with ulcer of left lower extremity (principal); L97.822 Non-pressure chronic ulcer of other part of left lower leg with fat layer exposed; I70.248 Atherosclerosis of native arteries of left leg with ulceration of other part of lower leg; I87.2 Venous insufficiency (chronic) (peripheral) | CPT/HCPCS: G0277 ==

== ENCOUNTER 2022-05-11 03:34 | Day surgery (SDC) | payer OTHER | END 2022-05-11 22:41 | disposition home or self-care (01) | LOC: HBO 03:34 | DX: I70.248 Atherosclerosis of native arteries of left leg with ulceration of other part of lower leg (principal); I87.312 Chronic venous hypertension (idiopathic) with ulcer of left lower extremity; L97.822 Non-pressure chronic ulcer of other part of left lower leg with fat layer exposed; I87.2 Venous insufficiency (chronic) (peripheral) | CPT/HCPCS: G0277 ==

== ENCOUNTER 2022-05-12 00:10 | Day surgery (SDC) | payer OTHER | END 2022-05-12 23:50 | disposition home or self-care (01) | LOC: HBO 00:10 | DX: I70.248 Atherosclerosis of native arteries of left leg with ulceration of other part of lower leg (principal); I87.312 Chronic venous hypertension (idiopathic) with ulcer of left lower extremity; L97.822 Non-pressure chronic ulcer of other part of left lower leg with fat layer exposed; I87.2 Venous insufficiency (chronic) (peripheral) | CPT/HCPCS: G0277 ==

== ENCOUNTER 2022-05-15 00:23 | Day surgery (SDC) | payer OTHER | END 2022-05-15 22:43 | disposition home or self-care (01) | LOC: WOUND 00:23 | DX: I87.312 Chronic venous hypertension (idiopathic) with ulcer of left lower extremity (principal); L97.822 Non-pressure chronic ulcer of other part of left lower leg with fat layer exposed; I70.248 Atherosclerosis of native arteries of left leg with ulceration of other part of lower leg; I87.2 Venous insufficiency (chronic) (peripheral) | CPT/HCPCS: A9270; Q4133 ==

== ENCOUNTER 2022-05-15 00:27 | Day surgery (SDC) | payer OTHER | END 2022-05-15 22:43 | disposition home or self-care (01) | LOC: HBO 00:27 | DX: I70.248 Atherosclerosis of native arteries of left leg with ulceration of other part of lower leg (principal); I87.312 Chronic venous hypertension (idiopathic) with ulcer of left lower extremity; L97.822 Non-pressure chronic ulcer of other part of left lower leg with fat layer exposed; I87.2 Venous insufficiency (chronic) (peripheral) | CPT/HCPCS: G0277 ==

== ENCOUNTER 2022-05-16 00:20 | Day surgery (SDC) | payer OTHER | END 2022-05-16 22:45 | disposition home or self-care (01) | LOC: HBO 00:20 | DX: I70.248 Atherosclerosis of native arteries of left leg with ulceration of other part of lower leg (principal); I87.312 Chronic venous hypertension (idiopathic) with ulcer of left lower extremity; L97.822 Non-pressure chronic ulcer of other part of left lower leg with fat layer exposed; I87.2 Venous insufficiency (chronic) (peripheral) | CPT/HCPCS: G0277 ==

== ENCOUNTER 2022-05-17 00:31 | Day surgery (SDC) | payer OTHER | END 2022-05-17 23:30 | disposition home or self-care (01) | LOC: HBO 00:31 | DX: I87.312 Chronic venous hypertension (idiopathic) with ulcer of left lower extremity (principal); I70.248 Atherosclerosis of native arteries of left leg with ulceration of other part of lower leg; L97.822 Non-pressure chronic ulcer of other part of left lower leg with fat layer exposed; I87.2 Venous insufficiency (chronic) (peripheral) | CPT/HCPCS: G0277 ==

== ENCOUNTER 2022-05-22 00:50 | Day surgery (SDC) | payer OTHER | END 2022-05-22 23:39 | disposition home or self-care (01) | LOC: WOUND 00:50 | DX: I87.312 Chronic venous hypertension (idiopathic) with ulcer of left lower extremity (principal); L97.822 Non-pressure chronic ulcer of other part of left lower leg with fat layer exposed; I70.248 Atherosclerosis of native arteries of left leg with ulceration of other part of lower leg; I87.2 Venous insufficiency (chronic) (peripheral); Z86.718 Personal history of other venous thrombosis and embolism; Z79.01 Long term (current) use of anticoagulants | CPT/HCPCS: A9270; G0463 ==

== ENCOUNTER 2022-05-29 01:12 | Day surgery (SDC) | payer OTHER | END 2022-05-29 22:49 | disposition home or self-care (01) | LOC: WOUND 01:12 | DX: I70.243 Atherosclerosis of native arteries of left leg with ulceration of ankle (principal); L97.322 Non-pressure chronic ulcer of left ankle with fat layer exposed; I87.312 Chronic venous hypertension (idiopathic) with ulcer of left lower extremity; I87.2 Venous insufficiency (chronic) (peripheral); Z79.01 Long term (current) use of anticoagulants | CPT/HCPCS: A9270; G0463 ==

== ENCOUNTER 2022-06-05 00:25 | Day surgery (SDC) | payer OTHER | END 2022-06-05 22:41 | disposition home or self-care (01) | LOC: WOUND 00:25 | DX: I87.312 Chronic venous hypertension (idiopathic) with ulcer of left lower extremity (principal); L97.822 Non-pressure chronic ulcer of other part of left lower leg with fat layer exposed; I87.2 Venous insufficiency (chronic) (peripheral); I70.248 Atherosclerosis of native arteries of left leg with ulceration of other part of lower leg | CPT/HCPCS: A9270; G0463 ==

== ENCOUNTER 2022-06-12 00:07 | Day surgery (SDC) | payer OTHER | END 2022-06-12 23:13 | disposition home or self-care (01) | LOC: WOUND 00:07 | DX: I87.312 Chronic venous hypertension (idiopathic) with ulcer of left lower extremity (principal); L97.822 Non-pressure chronic ulcer of other part of left lower leg with fat layer exposed; I70.248 Atherosclerosis of native arteries of left leg with ulceration of other part of lower leg; I87.2 Venous insufficiency (chronic) (peripheral); Z79.01 Long term (current) use of anticoagulants | CPT/HCPCS: A9270 ==

== ENCOUNTER 2022-06-26 00:30 | Day surgery (SDC) | payer OTHER | END 2022-06-26 22:50 | disposition home or self-care (01) | LOC: WOUND 00:30 | DX: I70.248 Atherosclerosis of native arteries of left leg with ulceration of other part of lower leg (principal); L97.822 Non-pressure chronic ulcer of other part of left lower leg with fat layer exposed; I87.312 Chronic venous hypertension (idiopathic) with ulcer of left lower extremity; I87.2 Venous insufficiency (chronic) (peripheral); Z86.718 Personal history of other venous thrombosis and embolism; Z79.01 Long term (current) use of anticoagulants | CPT/HCPCS: A9270; G0463 ==

== ENCOUNTER 2022-07-03 01:29 | Day surgery (SDC) | payer OTHER | END 2022-07-03 22:57 | disposition home or self-care (01) | LOC: WOUND 01:29 | DX: I87.312 Chronic venous hypertension (idiopathic) with ulcer of left lower extremity (principal); L97.822 Non-pressure chronic ulcer of other part of left lower leg with fat layer exposed; I70.248 Atherosclerosis of native arteries of left leg with ulceration of other part of lower leg; I87.2 Venous insufficiency (chronic) (peripheral) | CPT/HCPCS: A9270; G0463 ==

== ENCOUNTER 2022-07-10 00:51 | Day surgery (SDC) | payer OTHER | END 2022-07-10 22:39 | disposition home or self-care (01) | LOC: WOUND 00:51 | DX: I70.248 Atherosclerosis of native arteries of left leg with ulceration of other part of lower leg (principal); I87.312 Chronic venous hypertension (idiopathic) with ulcer of left lower extremity; L97.822 Non-pressure chronic ulcer of other part of left lower leg with fat layer exposed; I87.2 Venous insufficiency (chronic) (peripheral) | CPT/HCPCS: A9270; G0463 ==

== ENCOUNTER 2022-07-17 00:15 | Day surgery (SDC) | payer OTHER | END 2022-07-17 22:57 | disposition home or self-care (01) | LOC: WOUND 00:15 | DX: I70.248 Atherosclerosis of native arteries of left leg with ulceration of other part of lower leg (principal); I87.312 Chronic venous hypertension (idiopathic) with ulcer of left lower extremity; L97.822 Non-pressure chronic ulcer of other part of left lower leg with fat layer exposed; I87.2 Venous insufficiency (chronic) (peripheral) | CPT/HCPCS: A9270; G0463 ==

== ENCOUNTER 2022-07-24 08:00 | Day surgery (SDC) | payer OTHER | END 2022-07-24 23:59 | disposition home or self-care (01) | LOC: WOUND 08:00 | DX: I87.312 Chronic venous hypertension (idiopathic) with ulcer of left lower extremity (principal); I70.248 Atherosclerosis of native arteries of left leg with ulceration of other part of lower leg; L97.822 Non-pressure chronic ulcer of other part of left lower leg with fat layer exposed; I87.2 Venous insufficiency (chronic) (peripheral) | CPT/HCPCS: G0463 ==

== ENCOUNTER 2022-07-31 09:04 | Day surgery (SDC) | payer OTHER ==
[~2022-07-31] VITALS: Ht 165.1 cm; Wt 73.0 kg
[2022-07-31] VITALS (18 sets, daily range): BP systolic 82–156; BP diastolic 52–132
[~2022-07-31 09:04] MED LIST changes: +ATOR40TA PO; +ELIQUIS2.5 MG PO
--- NOTE | 2022-07-31 18:07 | NUR ---
SHIFT SUMMARY: PT ARRIVED FROM ANIMAL TRAPPER APPROX 1145. PT A&OX4. HR AFIB 60-80'S. BP STABLE. SBP MOSTLY 130-150'S. PT DENIES CP/PRESSURE. SPO2 SATS >95% ON RA. PT DENIES SOB. PT LYING FLAT IN BED. ANGIOSEAL IN PLACE OVER RIGHT GROIN ACCESS. NO BLEEDING, BRUISING, OR HEMATOMA NOTED ABOUT GROIN ACCESS SITE. PT REPORTS PAIN IN GROIN AND BACK. PAIN MANAGED WITH HOME DOSE OF NORCO PER EMAR. PT WITH IV IN RIGHT AC. ABLE TO VOID USING BEDPAN. NO BM'S THIS SHIFT. EATING AND DRINKING INDEPENDENTLY. PT ABLE TO MAKE NEEDS KNOWN APPROPRIATELY. CALL LIGHT WITHIN REACH. NO FURTHER NEEDS AT THIS TIME.
[2022-08-01 03:14] VITALS: BP 111/66
--- NOTE | 2022-08-01 06:33 | NUR ---
SHIFT SUMMARY PATIENT ALERT AND ORIENTED, ABLE TO MAKE NEEDS KNOWN TO STAFF. VITALS STABLE, PATIENT ON RA WITH O2 SAT >92% DURING THE NIGHT. NO COMPLAINTS OF CHEST PAIN OR PRESSURE. RIGHT GROIN SITE RECOVERED, NO HEMATOMA OR BRUISING NOTED. MEDICATED FOR PAIN PER EMAR. PATIENT ABLE TO GET UP AND USE BEDSIDE COMMODE DURING THE NIGHT WITH ADEQUATE OUTPUT. NO OTHER SIGNIFICANT CHANGES, WILL REPORT TO DAY SHIFT RN.
[2022-08-01 07:44] VITALS: BP 103/66
--- NOTE | 2022-08-01 08:15 | NUR ---
ASSUMED CARE: ASSUMED CARE OF PT APPROX 0715. PT A&OX4. LYING IN BED. VSS. PT DENIES CP/PRESSURE AND SOB. GROIN ACCESS SITE INTACT WITHOUT BRUISING, BLEEDING, OR HEMATOMA. PT REPORTS PAIN IN THE GROIN SITE AND HER BACK. PAIN MANAGED WITH HOME DOSE OF NORCO PER EMAR. PT INDEPENDENTLY EATING BREAKFAST. CALL LIGHT WITHIN REACH. NO FURTHER NEEDS AT THIS TIME.
[2022-08-01 11:18] VITALS: BP 98/61
--- NOTE | 2022-08-01 11:48 | NUR ---
Upon receiving a referral for spiritual care, I visited the patient. Patient is lying in bed and alert. She immediately shares about her [employer] michael and the success of the hospitalization. Her SO, Piter, arrives and joins in the conversation as they discuss how they met, the beginnings of their conversation experiences and the wonderful place emotionally/spiritually that they feel that they are in currently. They are clearly encouraged by conversation centered around their beliefs and energized by it. I provide that conversation, along with therapeutic listening, recitation of scripture and prayer. Both gagandeep and Piter responded well and showed signs of being encouraged in their michael and more hopeful about the future. I will continue to remain available to patient and family.
--- NOTE | 2022-08-01 11:48 | NUR ---
DISCHARGE: VITAL SIGNS STABLE ON DISCHARGE. GROIN SITE INTACT WITHOUT BRUISING, BLEEDING, OR HEMATOMA. ALL D/C PAPERWORK REVIEWED WITH PT AND SIGNIFICANT OTHER. IV REMOVED WITHOUT DIFFICULTY. SIGNIFICANT OTHER ASSISTED PT WITH GETTING DRESSED. THIS SN WHEELED PT OUT TO PERSONAL VEHICLE. INDEPENDENTLY TRANSFERRED TO VEHICLE WITHOUT DIFFICULTY.
== END 2022-08-01 11:44 | disposition home or self-care (01) ==
LOC: MHTC 09:04 → PCU 12:11 → MHTC 08-01 11:44
DX: I35.0 Nonrheumatic aortic (valve) stenosis (principal); I25.10 Atherosclerotic heart disease of native coronary artery without angina pectoris; I25.84 Coronary atherosclerosis due to calcified coronary lesion; I48.91 Unspecified atrial fibrillation; I74.3 Embolism and thrombosis of arteries of the lower extremities; I10 Essential (primary) hypertension; I82.5Y9 Chronic embolism and thrombosis of unspecified deep veins of unspecified proximal lower extremity; I73.9 Peripheral vascular disease, unspecified; I51.7 Cardiomegaly; I27.20 Pulmonary hypertension, unspecified; Z87.891 Personal history of nicotine dependence; Z79.899 Other long term (current) drug therapy
CPT/HCPCS: 75710; 76937; 93454; 99152; 99153; A9270; C1760; C1769; C1887; C1894; J1644; J2250; J3010; J7030; J7040; J7050; Q9967

== ENCOUNTER 2023-09-06 09:02 | Day surgery (SDC) | payer OTHER ==
[2023-09-06] VITALS (9 sets, daily range): BP systolic 92–125; BP diastolic 56–71
[~2023-09-06] VITALS: Ht 165.1 cm; Wt 71.2 kg
[~2023-09-06 09:02] MED LIST changes: +AFRIN15 M6; +C COMPLEX1000 M1 PO; +OLME20 PO; +Vitamin D1000 UNI1 PO
[2023-09-06] MEDS ORDERED: Norco 10-325 T1 EACH PO (09:23)
[2023-09-06] MEDS ORDERED: Heparin Sodium 1000 Units/ML 10ML MDV ONE (11:49)
[2023-09-06] MEDS ORDERED: NS 1,000 ML IV ONE ×2 (11:49→11:57)
[2023-09-06] MEDS ORDERED: NS 250 ML IV ONE ×2 (11:49→12:41)
[2023-09-06] MEDS ORDERED: FentaNYL Citrate 50 MCG/ML 2 ML Injection ONE ×2 (11:57→12:30)
[2023-09-06] MEDS ORDERED: Midazolam HCl 1MG / ML 2ML Vial ONE ×2 (11:57→12:30)
[2023-09-06] MEDS ORDERED: Nitroglycerin 2 MG/20 ML BTL ONE (13:01)
--- NOTE | 2023-09-06 13:59 | NUR ---
patient arrived from lab head, awake and responds appropriately, left groin site soft and nontender,no hematoma, no bleeding.
--- NOTE | 2023-09-06 14:42 | NUR ---
patient hob up , left groin site soft and nontender,dressing D&I, no hematoma, no bleeding
--- NOTE | 2023-09-06 16:30 | NUR ---
PATIENT VERBALIZED UNDERSTANDING OF DISCAHRGE INSTRUCTIONS AND PRECAUTIONS, NO FURTHER QUESTIONS. RIGHT GROIN SITE STABLE, NO CHANGES. IV SITE DCED WITH CATHETER INTACT. PATIENT DISCHARGED VIA WHEEL CHAIR TO WAITING CAR FRIEND DRIVING
== END 2023-09-06 22:41 | disposition home or self-care (01) ==
LOC: MHTC 09:02
DX: I70.221 Atherosclerosis of native arteries of extremities with rest pain, right leg (principal); I12.9 Hypertensive chronic kidney disease with stage 1 through stage 4 chronic kidney disease, or unspecified chronic kidney disease; I50.32 Chronic diastolic (congestive) heart failure; I48.91 Unspecified atrial fibrillation; Z87.891 Personal history of nicotine dependence; Z79.01 Long term (current) use of anticoagulants; Z79.899 Other long term (current) drug therapy
CPT/HCPCS: 37228; 37232; 75625; 75716; 75774; 76937; 99152; 99153; C1725; C1760; C1769; C1887; C1894; J1644; J2250; J3010; J7030; J7050; Q9967